=== PATIENT | male | born 1990 | race Caucasian/White ===

== ENCOUNTER 2016-12-02 10:46 | Emergency (ER) | payer MEDICARE, MEDICAID ==
[~2016-12-02] VITALS: Ht 177.8 cm; Wt 73.0 kg
[~2016-12-02 10:46] MED LIST: NAPR220T95 PO; OLAN10TA PO; TRAZ50TA12 PO
[2016-12-02 11:12] VITALS: BP 132/68; PULSE 120; RESP 18; TEMP 98.6; O2SAT 96
[2016-12-02] MEDS ORDERED: MOBI7.5T PO (11:27)
[2016-12-02] MEDS ORDERED: BENA25TA3 PO (11:28)
[2016-12-02] MEDS ORDERED: SODIUM CHLOR 0.9% 1000 ML INJ 1,000 ML IV ONE (11:45)
[2016-12-02] MEDS ORDERED: PANTOPRAZOLE SODIUM 40 MG VIAL IV PUSH ONE (11:45)
[2016-12-02 12:13] LABS: AUTOMATED NEUTROPHIL # 6.9 TH/MM3 (1.8-7.7); BASOPHIL % 0.3 % (0.0-2.0); EOSINOPHIL # 0.1 TH/MM3 (0-0.4); EOSINOPHIL % 0.8 % (0.0-4.0); HEMATOCRIT 53.2 % (39.0-51.0); HEMO FLAGS DIFF FINAL; LYMPH % 11.1 % (9.0-44.0); LYMPHOCYTE # 0.9 TH/MM3 (1.0-4.8); MEAN CELL VOLUME 86.9 FL (80.0-100.0); MEAN CORPUSCULAR HEMOGLOBIN 30.6 PG (27.0-34.0); MEAN CORPUSCULAR HGB CONC 35.2 % (32.0-36.0); MONO % 3.5 % (0.0-8.0); NEUT % 84.3 % (16.0-70.0); PLATELET COUNT 204 TH/MM3 (150-450); RED BLOOD COUNT 6.12 MIL/MM3 (4.50-5.90); RED CELL DISTRIBUTION WIDTH 13.7 % (11.6-17.2); WHITE BLOOD COUNT 8.2 TH/MM3 (4.0-11.0)
--- NOTE | 2016-12-02 12:25 | PD ---
HPI Chief Complaint: Psychiatric Symptoms Time Seen by Provider: 11:17 Travel History International Travel<30 days: No Contact w/Intl Traveler<30days: No Traveled to known affect area: No History of Present Illness HPI 26-year-old male complains of depression and poor appetite. Patient states that he has not been eating much recently. Patient has some suicidal ideation. Patient has history of psychosis and anxiety. Patient has not been taking his medications. Patient states that he has some mild aching headache. Patient denies any visual change. Patient denies any neck pain. Patient denies any chest pain or shortness of breath. Patient states that he has some the mid abdominal cramping. Patient denies any nausea vomiting diarrhea. Patient denies any dysuria or frequency. Patient denies any fever chills. Patient denies any history of illicit drug or alcohol abuse. PFSH Past Medical History Bipolar Disorder: Yes Anxiety: Yes Cancer: No Cardiovascular Problems: No Diabetes: No Endocrine: No Genitourinary: No Headaches: No Hepatitis: No Hiatal Hernia: No Hypertension: No Immune Disorder: No Musculoskeletal: Yes (cerebrel palsy) Psychiatric: No Reproductive: No Respiratory: No Seizures: No Thyroid Disease: No Past Surgical History Cardiac Surgery: Yes Eye Surgery: Yes Pacemaker: No Other Surgery: Yes Social History Alcohol Use: No Tobacco Use: No Substance Use: No Allergies-Medications (Allergen,Severity, Reaction): Coded Allergies: Sulfa (Verified Allergy, Severe, Rash, 08/11/16) Reported Meds & Prescriptions Reported Meds & Active Scripts Active Reported Benadryl Allergy (Diphenhydramine HCl) 25 Mg Tab 25 Mg PO Q6H PRN Mobic (Meloxicam) 7.5 Mg Tab 7.5 Mg PO DAILY Aleve (Naproxen Sodium) 220 Mg Tab 1 Tab PO DAILY PRN Trazodone (Trazodone HCl) 50 Mg Tab 1 Tab PO HS Olanzapine 10 Mg Tab 1 Tab PO HS Review of Systems General / Constitutional: No: Fever Eyes: No: Visual changes HENT: No: Headaches Cardiovascular: No: Chest Pain or Discomfort Respiratory: No: Shortness of Breath Gastrointestinal: Positive: Abdominal Pain Genitourinary: No: Dysuria Musculoskeletal: No: Pain Skin: No Rash Neurologic: No: Weakness Psychiatric: No: Depression Endocrine: No: Polydipsia Hematologic/Lymphatic: No: Easy Bruising Physical Exam Narrative GENERAL: Well-nourished, well-developed patient. SKIN: Warm and dry. HEAD: Normocephalic. EYES: No scleral icterus. No injection or drainage. NECK: Supple, trachea midline. No JVD or lymphadenopathy. CARDIOVASCULAR: Mild tachycardia rate and rhythm without murmurs, gallops, or rubs. RESPIRATORY: Breath sounds equal bilaterally. No accessory muscle use. GASTROINTESTINAL: Abdomen soft, non-tender, nondistended. MUSCULOSKELETAL: No cyanosis, or edema. BACK: Nontender without obvious deformity. No CVA tenderness. Neurologic exam normal. Data Data Last Documented VS Vital Signs Date Time Temp Pulse Resp B/P Pulse Ox O2 Delivery O2 Flow Rate FiO2 12/02/16 11:22 124 20 12/02/16 11:21 12/02/16 11:12 98.6 96 Orders Complete Blood Count With Diff (12/02/16 11:41) Comprehensive Metabolic Panel (12/02/16 11:41) Urinalysis - C+S If Indicated (12/02/16 11:41) Psych Screen (12/02/16 11:41) Drug Screen, Random Urine (12/02/16 11:41) Sodium Chlor 0.9% 1000 Ml Inj (Ns 1000 M (12/02/16 11:45) Pantoprazole Inj (Protonix Inj) (12/02/16 11:45) Electrocardiogram (12/02/16 ) Labs Laboratory Tests Test 12/02/16 11:47 White Blood Count 8.2 TH/MM3 Red Blood Count 6.12 MIL/MM3 Hemoglobin 18.7 GM/DL Hematocrit 53.2 % Mean Corpuscular Volume 86.9 FL Mean Corpuscular Hemoglobin 30.6 PG Mean Corpuscular Hemoglobin 35.2 % Concent Red Cell Distribution Width 13.7 % Platelet Count 204 TH/MM3 Mean Platelet Volume 10.0 FL Neutrophils (%) (Auto) 84.3 % Lymphocytes (%) (Auto) 11.1 % Monocytes (%) (Auto) 3.5 % Eosinophils (%) (Auto) 0.8 % Basophils (%) (Auto) 0.3 % Neutrophils # (Auto) 6.9 TH/MM3 Lymphocytes # (Auto) 0.9 TH/MM3 Monocytes # (Auto) 0.3 TH/MM3 Eosinophils # (Auto) 0.1 TH/MM3 Basophils # (Auto) 0.0 TH/MM3 CBC Comment DIFF FINAL Differential Comment MDM Medical Decision Making Medical Screen Exam Complete: Yes Emergency Medical Condition: Yes Medical Record Reviewed: Yes Differential Diagnosis Differential diagnosis including anxiety, depression, psychosis, suicidal, electrolyte imbalance, dehydration. Narrative Course 26-year-old male with depression, suicidal, poor oral intake. Normal saline solution 1 L IV bolus. Protonix 40 mg IV. Kevin Wesley MD Dec 02, 2016 12:25
[2016-12-02 12:43] LABS: ALKALINE PHOSPHATASE 89 U/L (45-117); ALT (GPT) 36 U/L (12-78); ANION GAP 15 MEQ/L (5-15); AST (GOT) 22 U/L (15-37); BLOOD UREA NITROGEN 13 MG/DL (7-18); CHLORIDE 99 MEQ/L (98-107); GLOMERULAR FILTRATION RATE 59 ML/MIN (>89); POTASSIUM 3.1 MEQ/L (3.5-5.1); SODIUM (NA) 137 MEQ/L (136-145); TOTAL BILIRUBIN ADULT 2.4 MG/DL (0.2-1.0)
[2016-12-02] MEDS ORDERED: LORazepam 2 MG/ML VIAL IV PUSH ONE (13:30)
[2016-12-02 13:55] LABS: BLOOD, URINE NEG (NEG); GLUCOSE,URINE 300 mg/dL (NEG); KETONE, URINE 40 mg/dL (NEG); NITRITE,URINE NEG (NEG); PH, URINE 5.5 (5.0-8.5); URINE COLOR LIGHT-YELLOW (YELLW/STRAW)
[2016-12-02 14:03] LABS: COMMENT (UR) CULT NOT INDICATED; CULTURE IF INDICATED CULT NOT INDICATED
--- NOTE | 2016-12-02 15:01 | PD ---
History of Present Illness Chief Complaint: Psychiatric Symptoms Time Seen by Provider: 14:00 Travel History International Travel<30 Days: No Contact w/Intl Traveler<30days: No Known affected area: No Legal Status Legal Status: Pick[place] Act Pick[place] Act Signed By: Paulina Norris History of Present Illness: This is a 26-year-old male with a history of psychiatric illness, cerebral palsy and significant visual impairment. Patient was reportedly not sleeping or eating well for the last 3 days. He appeared very anxious at the time of interview and was a poor historian. Therefore this physician called and spoke with the patient's mother. Patient's mother indicates he has been withdrawing himself from oxazepam over the last several weeks, against his doctor's advice, and this has most likely precipitated his recent symptoms. The patient has become very tired due to sleeplessness, very anxious due to withdrawal, and has lost his appetite. He is not currently suicidal or homicidal. He is not psychotic. His visual impairment is significant and his cerebral palsy is obvious. According to his mother, he spent a week at [facility] approximately 2-3 years ago. However at this time the patient would like to go home and he denies suicidal and homicidal thinking. The patient's mother is willing to pick him up and take him to her home for several days. She was concerned about a lack of prescription for oxazepam and this physician wrote 1 to assist the patient's anxiety disorder needs. Patient does have an outpatient psychiatrist for follow up. [facility] Past Medical History Narrative Medical History of cerebral palsy and significant visual impairment. Bipolar Disorder: Yes Anxiety: Yes Cancer: No Cardiovascular Problems: No Diabetes: No Endocrine: No Genitourinary: No Headaches: No Hepatitis: No Hiatal Hernia: No Hypertension: No Immune Disorder: No Musculoskeletal: Yes (cerebrel palsy) Psychiatric: No Reproductive: No Respiratory: No Seizures: No Thyroid Disease: No Past Surgical History Cardiac Surgery: Yes Eye Surgery: Yes Pacemaker: No Other Surgery: Yes Psychiatric History Psychiatric History Hx Psychiatric Treatment: The patient's mother stated that the patient has A history of psychiatric treatment & diagnosis. The patient's mother indicated that the patient has been stable, capable, and happy until the most recent few days. History of Inpatient Treatment: No Guns or firearms in home: No Social History Hx Alcohol Use: No Hx Tobacco Use: No Hx Substance Use: No Substance Use Type: Alcohol Other Substances Used: OCCASIONAL WINE COOLER Hx of Substance Use Treatment: No Allergies-Medications (Allergen,Severity, Reaction): Coded Allergies: Sulfa (Verified Allergy, Severe, Rash, 08/11/16) Reported Meds & Prescriptions Reported Meds & Active Scripts Active Reported Benadryl Allergy (Diphenhydramine HCl) 25 Mg Tab 25 Mg PO Q6H PRN Mobic (Meloxicam) 7.5 Mg Tab 7.5 Mg PO DAILY Aleve (Naproxen Sodium) 220 Mg Tab 1 Tab PO DAILY PRN Trazodone (Trazodone HCl) 50 Mg Tab 1 Tab PO HS Olanzapine 10 Mg Tab 1 Tab PO HS Review of Systems ROS Limitations: Clinical Condition Except as stated in HPI: all other systems reviewed are Neg Exam Alert: Yes [place]: Person, Place, Date, Situation Mood: Anxious Affect: Euthymic Speech: Clear Eye Contact: None Memory Intact: Immediate, Recent, Remote Hallucinations: Other Delusions: No Delusion Type: Other Insight/Judgement Fair judgment and insight do to oxazepam withdrawal. MDM Medical Decision Making Medical Record Reviewed: Yes Assessment/Plan Patient to be discharged home to his mother per his request and her acknowledgment. Orders Complete Blood Count With Diff (12/02/16 11:41) Comprehensive Metabolic Panel (12/02/16 11:41) Urinalysis - C+S If Indicated (12/02/16 11:41) Psych Screen (12/02/16 11:41) Drug Screen, Random Urine (12/02/16 11:41) Sodium Chlor 0.9% 1000 Ml Inj (Ns 1000 M (12/02/16 11:45) Pantoprazole Inj (Protonix Inj) (12/02/16 11:45) Electrocardiogram (12/02/16 ) Lorazepam Inj (Ativan Inj) (12/02/16 13:30) Results Vital Signs Date Time Temp Pulse Resp B/P Pulse Ox O2 Delivery O2 Flow Rate FiO2 12/02/16 11:22 124 20 12/02/16 11:21 12/02/16 11:12 98.6 120 18 132/68 96 Laboratory Tests Test 12/02/16 12/02/16 11:47 13:34 White Blood Count 8.2 Red Blood Count 6.12 Hemoglobin 18.7 Hematocrit 53.2 Mean Corpuscular Volume 86.9 Mean Corpuscular Hemoglobin 30.6 Mean Corpuscular Hemoglobin 35.2 Concent Red Cell Distribution Width 13.7 Platelet Count 204 Mean Platelet Volume 10.0 Neutrophils (%) (Auto) 84.3 Lymphocytes (%) (Auto) 11.1 Monocytes (%) (Auto) 3.5 Eosinophils (%) (Auto) 0.8 Basophils (%) (Auto) 0.3 Neutrophils # (Auto) 6.9 Lymphocytes # (Auto) 0.9 Monocytes # (Auto) 0.3 Eosinophils # (Auto) 0.1 Basophils # (Auto) 0.0 CBC Comment DIFF FINAL Differential Comment Sodium Level 137 Potassium Level 3.1 Chloride Level 99 Carbon Dioxide Level 23.0 Anion Gap 15 Blood Urea Nitrogen 13 Creatinine 1.45 Estimat Glomerular Filtration 59 Rate Random Glucose 196 Calcium Level 9.1 Total Bilirubin 2.4 Aspartate Amino Transf 22 (AST/SGOT) Alanine Aminotransferase 36 (ALT/SGPT) Alkaline Phosphatase 89 Total Protein 8.4 Albumin 4.8 Urine Color LIGHT-YELLOW Urine Turbidity CLEAR Urine pH 5.5 Urine Specific [place] 1.008 Urine Protein NEG Urine Glucose (UA) 300 Urine Ketones 40 Urine Occult Blood NEG Urine Nitrite NEG Urine Bilirubin NEG Urine Urobilinogen LESS THAN 2.0 Urine Leukocyte Esterase NEG Urine RBC LESS THAN 1 Urine WBC LESS THAN 1 Microscopic Urinalysis Comment CULT NOT INDICATED Diagnosis Primary Impression: Anxiety disorder Nba Mercado MD Dec 02, 2016 15:01
[2016-12-02 15:19] LABS: AMPHETAMINE, URINE NEG (NEG); BARBITURATES, URINE NEG (NEG); COCAINE, URINE NEG (NEG)
--- NOTE | 2016-12-03 22:40 | EKG ---
Date Performed: 12/02/2016 Time Performed: 11:20:11 PTAGE: 26 years EKG: SINUS TACHYCARDIA BORDERLINE RIGHT AXIS DEVIATION ABNORMAL RHYTHM ECG NO PREVIOUS TRACING DOCTOR: Smith Tomas Interpretating Date/Time 12/03/2016 22:39:16
== END 2016-12-02 15:50 | disposition home or self-care (01) ==
LOC: NEPA 10:46
DX: F41.9 Anxiety disorder, unspecified (principal); G80.9 Cerebral palsy, unspecified; R51 Headache; R10.9 Unspecified abdominal pain; R00.0 Tachycardia, unspecified
CPT/HCPCS: 80053; 80307; 81001; 85025; 93005; 96374; 96375; 99285; C9113; J2060; J7030

== ENCOUNTER 2016-12-04 11:22 | Inpatient (IN) | payer MEDICARE, MEDICAID ==
[~2016-12-04] VITALS: Ht 170.2 cm; Wt 65.3 kg
[~2016-12-04 11:22] MED LIST changes: +BENA25TA3 PO; +MOBI7.5T PO
[2016-12-04 11:24] VITALS: BP 168/88; PULSE 135; RESP 18; TEMP 97.8; O2SAT 99
[2016-12-04 11:26] VITALS: BP 137/103; PULSE 124; RESP 20; O2SAT 97
--- NOTE | 2016-12-04 11:42 | PD ---
HPI Chief Complaint: Suicide Ideation/Attempt Time Seen by Provider: 11:42 Travel History International Travel<30 days: No Contact w/Intl Traveler<30days: No Traveled to known affect area: No History of Present Illness HPI 26-year-old man who is legally blind with history of bipolar presents to emergency department for psychiatric evaluation. Patient is alert by Drs. German and aSl. Has been increasingly depressed after manipulation of his medications. This is accompanied by severe anxiety. Patient has been experiencing suicidal thoughts, mostly in his dreams. This scares him. Denies any recent illness, fever, chills. Mom accompanies patient states that Dr. Huang contacted the hospital however I have been unable to find out whom he spoke with. Patient has no acute medical needs at this time. Lab work was drawn at patient's most recent visit 2 days ago. It will not be repeated at this time. PFSH Past Medical History Bipolar Disorder: Yes Anxiety: Yes Cancer: No Cardiovascular Problems: No Diabetes: No Endocrine: No Genitourinary: No Headaches: No Hepatitis: No Hiatal Hernia: No Hypertension: No Immune Disorder: No Musculoskeletal: Yes (cerebrel palsy) Psychiatric: No Reproductive: No Respiratory: No Seizures: No Thyroid Disease: No Past Surgical History Cardiac Surgery: Yes Eye Surgery: Yes Pacemaker: No Other Surgery: Yes Social History Alcohol Use: No Tobacco Use: No Substance Use: No Allergies-Medications (Allergen,Severity, Reaction): Coded Allergies: Sulfa (Verified Allergy, Severe, Rash, 08/11/16) Reported Meds & Prescriptions Reported Meds & Active Scripts Active Reported Benadryl Allergy (Diphenhydramine HCl) 25 Mg Tab 25 Mg PO Q6H PRN Mobic (Meloxicam) 7.5 Mg Tab 7.5 Mg PO DAILY Aleve (Naproxen Sodium) 220 Mg Tab 1 Tab PO DAILY PRN Trazodone (Trazodone HCl) 50 Mg Tab 1 Tab PO HS Olanzapine 10 Mg Tab 1 Tab PO HS Review of Systems Except as stated in HPI: all other systems reviewed are Neg Physical Exam Narrative GENERAL: Thin male patient, ambulatory, anxious, but in no acute distress SKIN: Warm and dry. HEAD: Atraumatic. Normocephalic. EYES: Pupils equal and round. No scleral icterus. No injection or drainage. ENT: No nasal bleeding or discharge. Mucous membranes pink and moist. NECK: Trachea midline. No JVD. CARDIOVASCULAR: Tachycardic rate and rhythm. No murmur appreciated. RESPIRATORY: No accessory muscle use. Clear to auscultation. Breath sounds equal bilaterally. GASTROINTESTINAL: Abdomen soft, non-tender, nondistended. Hepatic and splenic margins not palpable. MUSCULOSKELETAL: No obvious deformities. No clubbing. No cyanosis. No edema. NEUROLOGICAL: Awake and alert. No obvious cranial nerve deficits. Motor grossly within normal limits. Normal speech. Data Data Last Documented VS Vital Signs Date Time Temp Pulse Resp B/P Pulse Ox O2 Delivery O2 Flow Rate FiO2 12/04/16 11:26 124 20 137/103 97 12/04/16 11:24 97.8 [facility] Medical Decision Making Medical Screen Exam Complete: Yes Emergency Medical Condition: Yes Medical Record Reviewed: Yes Differential Diagnosis Mood disorder versus personality disorder versus acute psychosis versus adjustment reaction disorder Narrative Course 26-year-old male presents to emergency department for psychiatric evaluation. Patient is depressed and having suicidal thoughts with no active plan currently. Patient was advised to come here by Dr. Huang. Lab work will not be repeated as it was completed 2 days ago. He is medically cleared to undergo psychiatric screening for further evaluation and disposition. Mental health screening discussed with the patient. Psychiatric screen ordered. Diagnosis Primary Impression: Bipolar disorder Qualified Code: F31.4 - Bipolar disorder, current episode depressed, severe, without psychotic features Additional Impressions: Depression Qualified Code: F32.9 - Depression, unspecified depression type Suicidal thoughts Condition: Darby SotoMariana IGNACIA Dec 04, 2016 11:42
[2016-12-04 12:28] VITALS: BP 132/74; PULSE 76; RESP 16; TEMP 98.5; O2SAT 95
[2016-12-04 14:05] VITALS: BP 138/76; PULSE 80; RESP 18; O2SAT 98
[2016-12-04] MEDS ORDERED: LORazepam 1 MG TAB PO ONE (15:45)
[2016-12-04] MEDS ORDERED: diphenhydrAMINE HCL 50 MG CAP PO ONE (21:45)
[2016-12-04 22:12] VITALS: BP 168/90; PULSE 109; RESP 18; O2SAT 97
[2016-12-05 02:11] VITALS: RESP 18
[2016-12-05 06:16] VITALS: BP 141/66; PULSE 99; RESP 18; O2SAT 97
--- NOTE | 2016-12-05 09:23 | PD ---
History of Present Illness Chief Complaint: Suicide Ideation/Attempt Time Seen by Provider: 08:45 Travel History International Travel<30 Days: No Contact w/Intl Traveler<30days: No Known affected area: No Legal Status Legal Status: Voluntary History of Present Illness: History of Present Illness 26-year-old man with history of bipolar Disorder 1 who is legally blind presents to emergency department for psychiatric evaluation as per the recommendation his outpatient psychiatrist, Dr. Adamson . As per documentation from Ed included in this report ; Has been increasingly depressed after manipulation of his medications. This is accompanied by severe anxiety. Patient has been experiencing suicidal thoughts, mostly in his dreams. This scares him. Denies any recent illness, fever, chills. Mom accompanies patient states that Dr. Huang contacted the hospital however I have been unable to find out whom he spoke with. Patient was seen and evaluated in ED on Nov, but at the time did not meet criteria for inpatient psychiatric hospitalization and mother preferred that he be treated as an outpatient . Patient is in J pod. Patient is rocking back and forth and appears anxious. He is visually impaired. He is engaging and able to answer questions. he does not appear internally stimulated. He denies any hallucinatory process. Does report fast and intrusive thoughts. Having difficulty making decisions and excessive worry. He does state that he is having suicidal thoughts that he has never had before and cause him distress. Mood is anxious and depressed. Patient reports that he has not slept well in the past 4 to 4 days and that he is not eating well. Telephone call to mother. She reports that after he stopped the Zyprexa on Nov 18. The patient felt that he did not have a correct psychiatric diagnosis of bipolar disorder and against medical advise stopped taking the Zyprexa. After several weeks he began to experience symptoms including not sleeping, running around from room to room, complaining of not being able to control his thoughts , changes in his mood. She prefers that at this time he was hospitalized in order to stabilize medications and mood. As per EMR patient was last hospitalized [facility] in December of 2014 under the care of Dr. Whalen after he was placed under a BA for what appears to be manic symptoms. PFSH Past Medical History Bipolar Disorder: Yes Anxiety: Yes Cancer: No Cardiovascular Problems: No Diabetes: No Endocrine: No Genitourinary: No Headaches: No Hepatitis: No Hiatal Hernia: No Hypertension: No Immune Disorder: No Musculoskeletal: Yes (cerebrel palsy) Psychiatric: No Reproductive: No Respiratory: No Seizures: No Thyroid Disease: No Past Surgical History Cardiac Surgery: Yes Eye Surgery: Yes Pacemaker: No Other Surgery: Yes Psychiatric History Psychiatric History Hx Psychiatric Treatment: The patient's mother stated that the patient has A history of bipolar I disorder. History of Inpatient Treatment: Yes ([facility] [place]) Guns or firearms in home: No Social History Single male. Lives by himself. Mother lives next door. Disabled Hx Alcohol Use: No Hx Tobacco Use: No Hx Substance Use: No Substance Use Type: Alcohol Other Substances Used: OCCASIONAL WINE COOLER Hx of Substance Use Treatment: No Family Psychiatric History Strong family hx of BPD as per record Allergies-Medications (Allergen,Severity, Reaction): Coded Allergies: Sulfa (Verified Allergy, Severe, Rash, 08/11/16) Reported Meds & Prescriptions Reported Meds & Active Scripts Active Reported Benadryl Allergy (Diphenhydramine HCl) 25 Mg Tab 25 Mg PO Q6H PRN Mobic (Meloxicam) 7.5 Mg Tab 7.5 Mg PO DAILY Aleve (Naproxen Sodium) 220 Mg Tab 1 Tab PO DAILY PRN Trazodone (Trazodone HCl) 50 Mg Tab 1 Tab PO HS Olanzapine 10 Mg Tab 1 Tab PO HS Review of Systems Constitutional: DENIES: Diaphoretic episodes, Fatigue, Fever, Weight gain, Weight loss, Chills, Dizziness, Change in appetite, Night Sweats Endocrine: COMPLAINS OF: Heat/cold intolerance (cold intolerance), DENIES: Polydipsia, Polyuria, Polyphagia Eyes: COMPLAINS OF: Vision loss Ears, nose, mouth, throat: DENIES: Tinnitus, Hearing loss, Vertigo, Nasal discharge, Oral lesions, Throat pain, Hoarseness, Ear Pain, Running Nose, Epistaxis, Sinus Pain, Toothache, Odynophagia Respiratory: DENIES: Apneas, Cough, Snoring, Wheezing, Hemoptysis, Sputum production, Shortness of breath Cardiovascular: DENIES: Chest pain, Palpitations, Syncope, Dyspnea on Exertion , PND, Lower Extremity Edema, Orthopnea, Claudication Gastrointestinal: DENIES: Abdominal pain, Black stools, Bloody stools, Constipation, Diarrhea, Nausea, Vomiting, Difficulty Swallowing, Anorexia Genitourinary: DENIES: Sexual dysfunction, Urinary frequency, Urinary incontinence, Urgency, Hematuria, Dysuria, Nocturia, Penile Discharge, Testicular Pain, Testicular Swelling Musculoskeletal: DENIES: Joint pain, Muscle aches, Stiffness, Joint Swelling, Back pain, Neck pain Integumentary: DENIES: Abnormal pigmentation, Nail changes, Pruritus, Rash Hematologic/lymphatic: DENIES: Bruising, Lymphadenopathy Immunologic/allergic: DENIES: Eczema, Urticaria Neurologic: COMPLAINS OF: Abnormal gait, Poor Balance (HC of CP) Psychiatric: COMPLAINS OF: Anxiety, Mood changes, Suicidal Ideation Exam Alert: Yes [place]: Person (person), Place, Date (partial to date) Mood: Anxious, Depressed Affect: Restricted Speech: Clear Eye Contact: None (visually impaired) Memory Intact: Comment (not formally tetsed) Hallucinations: Other (deneis) Suicidal: Ideation (of jumping in traffic or jumping in the ocean while on a cruise) Homicidal: Ideation (negative) Insight/Judgement Fair. Poor MDM Medical Decision Making Medical Record Reviewed: Yes Assessment/Plan 26 year old male with hx of bipolar disorder who at the beginning of this month stopped talking Zyprexa with current symptoms of [id number] including not sleeping, anxiety, mood changes, rapid intrusive thoughts, suicidal ideation, poor coping, excessive worry. At this time patient requires increase in level of care such as inpatient psychiatric treatment to stabilize current symptoms and maintain his safety. Orders Lorazepam (Ativan) (12/04/16 15:45) Diet Regular Basic (12/04/16 Dinner) Diphenhydramine (Benadryl) (12/04/16 21:45) Diet Regular Basic (12/05/16 Breakfast) Psych Screen (12/05/16 08:58) Results Vital Signs Date Time Temp Pulse Resp B/P Pulse Ox O2 Delivery O2 Flow Rate FiO2 12/05/16 06:16 99 18 141/66 97 Room Air 12/05/16 02:11 18 Room Air 12/04/16 22:12 109 18 168/90 97 Room Air 12/04/16 14:05 80 18 138/76 98 Room Air 12/04/16 12:28 98.5 76 16 132/74 95 Room Air 12/04/16 11:26 124 20 137/103 97 12/04/16 11:24 97.8 135 18 168/88 99 Diagnosis Primary Impression: Bipolar disorder Additional Impressions: Suicidal thoughts Depression Admitting Information Admitting Physician Requests: Admit (Dr. Perez) Condition: Stable Problem Qualifiers Primary Impression: Bipolar disorder Qualified Code: F31.0 - Bipolar affective disorder, current episode hypomanic Additional Impressions: Depression Qualified Code: F32.9 - Depression, unspecified depression type Katherin Desai Dec 05, 2016 09:23
[2016-12-05] MEDS ORDERED: MAGNESIUM HYDROXIDE SUSP 30 ML CUP PO PRN (09:45)
[2016-12-05] MEDS ORDERED: ALUMINUM/MAGNESIUM/SIMETH 30 ML CUP PO PRN (09:45)
[2016-12-05 12:20] VITALS: BP 139/82; PULSE 122; RESP 20; O2SAT 95
[2016-12-05] MEDS ORDERED: OLANZapine 5 MG TAB PO ONE (12:30)
[2016-12-05] MEDS ORDERED: LORazepam 1 MG TAB PO ONE (13:00)
[2016-12-05 13:30] VITALS: BP 133/80; PULSE 82; TEMP 99.1; O2SAT 99
[2016-12-05] MEDS: OLANZapine 10 MG TAB PO SCH (21:00)
[2016-12-05] MEDS: ACETAMINOPHEN 325 MG TAB PO PRN (22:35)
[2016-12-05] MEDS ORDERED: diphenhydrAMINE HCL 50 MG CAP PO PRN (23:00)
[2016-12-06 05:23] VITALS: BP 151/88; PULSE 120; RESP 20; TEMP 98.7; O2SAT 97
[2016-12-06 07:52] LABS: ANION GAP 9 MEQ/L (5-15); BICARBONATE 25.7 MEQ/L (21.0-32.0); BLOOD UREA NITROGEN 10 MG/DL (7-18); CHLORIDE 102 MEQ/L (98-107); GLOMERULAR FILTRATION RATE 98 ML/MIN (>89); HDL CHOLESTEROL 55.2 MG/DL (40.0-60.0); LDL CHOLESTEROL 61 MG/DL (0-99); POTASSIUM 3.6 MEQ/L (3.5-5.1); SODIUM (NA) 137 MEQ/L (136-145)
[2016-12-06] MEDS: MELOXICAM 7.5 MG TAB PO SCH (08:35)
[2016-12-06] MEDS ORDERED: LORazepam 2 MG TAB PO ONE (12:30)
--- NOTE | 2016-12-06 14:21 | HHI.HP ---
Provisional Diagnosis Admission Date Dec 05, 2016 at 09:38 Covert I. Major depressive disorder vs bipolar disorder, depressed mood, adjustment disorder with depression, Covert II. Deferred Covert III. Legally blind Certification of Person's Competence To Provide Express and Informed Consent I have personally examined Bryan Zhu , a person being served at [facility] on, Dec 06, 2016 14:04. Express and informed consent means consent voluntarily given in writing, by a competent person, after sufficient explanation and disclosure of the subject matter involved to enable the person to make a knowing and willful decision without any element of force, fraud, deceit, duress, or other form of constraint or coercion. This person is 18 years of age or older, is not now known to be incompetent to consent to treatment with a guardian advocate, and does not have a health care surrogate or proxy currently making medical treatment decisions. I have found this person to be one of the following: [] Competent to provide express and informed consent, as defined above, for voluntary admission to this facility and is competent to provide express and informed consent for treatment. He/she has the consistent capacity to make well reasoned, willful, and knowing decisions concerning his or her medical or mental health treatment. The person fully and consistently understands the purpose of the admission for examination/placement and is fully capable of personally exercising all rights assured under [place] [] Incompetent to provide express and informed consent to voluntary admission, and this is incompetent to provide express and informed consent to treatment. The person must be transferred to involuntary status and a petition for a guardian advocate filed with the Circuit Court. [X] Refusing to provide express and informed consent to voluntary admission but is competent to provide express and informed consent for treatment. The person must be discharged or transferred to involuntary status. Form shall be completed within 24 hours of a person's arrival at the receiving facility and filed in the clinical record of each person: 1. Admitted on a voluntary basis 2. Permitted to provide express and informed consent to his/her own treatment 3. Allowed to transfer from involuntary to voluntary status 4. Prior to permitting a person to consent to his or her own treatment after having been previously found incompetent to consent to treatment. History of Present Illness Capacity: Has Capacity HPI ER note, by Ms. Desai, 12/06/2016 :"26-year-old man with history of bipolar Disorder 1 who is legally blind presents to emergency department for psychiatric evaluation as per the recommendation his outpatient psychiatrist, Dr. Adamson . As per documentation from Ed included in this report ; Has been increasingly depressed after manipulation of his medications. This is accompanied by severe anxiety. Patient has been experiencing suicidal thoughts , mostly in his dreams. This scares him. Denies any recent illness, fever, chills. Mom accompanies patient states that Dr. Huang contacted the hospital however I have been unable to find out whom he spoke with. Patient was seen and evaluated in ED on Nov, but at the time did not meet criteria for inpatient psychiatric hospitalization and mother preferred that he be treated as an outpatient Patient is in J pod. Patient is rocking back and forth and appears anxious. He is visually impaired. He is engaging and able to answer questions. he does not appear internally stimulated. He denies any hallucinatory process. Does report fast and intrusive thoughts. Having difficulty making decisions and excessive worry. He does state that he is having suicidal thoughts that he has never had before and cause him distress. Mood is anxious and depressed. Patient reports that he has not slept well in the past 4 to 4 days and that he is not eating well. Telephone call to mother. She reports that after he stopped the Zyprexa on Nov 18. The patient felt that he did not have a correct psychiatric diagnosis of bipolar disorder and against medical advise stopped taking the Zyprexa. After several weeks he began to experience symptoms including not sleeping, running around from room to room, complaining of not being able to control his thoughts, changes in his mood. She prefers that at this time he was hospitalized in order to stabilize medications and mood. As per EMR patient was last hospitalized [facility] in December of 2014 under the care of Dr. Whalen after he was placed under a BA for what appears to be manic symptoms" 12/06/2016: The patient is a 26-year-old man, domicile with his mother , with psychiatric history of bipolar disorder, anxiety, cerebral palsy, some level of intellectual disability, hospitalized here at [place] in 2014, no previous suicidal attempts, psychiatric follow-up with Dr. German, medical history of legal blindness, who was admitted in the psychiatric weiss as per outpatient psychiatrist request due to suicidal ideation and depression in the context of recent changes in his psychotropics. On psychiatric evaluation today patient complains of acute anxiety, poor sleep, is very ambivalent, at the beginning he says that he wants to , minutes later he is a that he doesn' t want to "I cannot stop the intrusive thought about this". Patient says that he doesn't want to , he wants to get better, is motivated to take his medication, but he is afraid of losing his mind. At this moment the patient denies suicidal or homicidal ideation, denies visual and auditory hallucinations. As per nurses he has been pacing around, at time he has been been difficult to redirect and he has been complaining of anxiety. Patient reports auditory hallucinations of ringing sounds, but denies voices commanding type. At some point over the evaluation patient became very labile, started to cry and complain of anxiety, stating that "I cannot take this anymore". Patient is oriented 3, he was offered Ativan 2 mg and he accepted. Review of Systems Constitutional: DENIES: Diaphoretic episodes, Fatigue, Fever, Weight gain, Weight loss, Chills, Dizziness, Change in appetite, Night Sweats Endocrine: DENIES: Heat/cold intolerance, Polydipsia, Polyuria, Polyphagia Eyes: COMPLAINS OF: Vision loss, DENIES: Blurred vision, Diplopia, Eye inflammation, Eye pain, Photosensitivity, Double Vision Ears, nose, mouth, throat: DENIES: Tinnitus, Hearing loss, Vertigo, Nasal discharge, Oral lesions, Throat pain, Hoarseness, Ear Pain, Running Nose, Epistaxis, Sinus Pain, Toothache, Odynophagia Respiratory: DENIES: Apneas, Cough, Snoring, Wheezing, Hemoptysis, Sputum production, Shortness of breath Gastrointestinal: DENIES: Abdominal pain, Black stools, Bloody stools, Constipation, Diarrhea, Nausea, Vomiting, Difficulty Swallowing, Anorexia Hematologic/lymphatic: DENIES: Bruising, Lymphadenopathy Immunologic/allergic: DENIES: Eczema, Urticaria Psychiatric: COMPLAINS OF: Anxiety, Depression, Hallucinations, DENIES: Confusion, Mood changes, Agitation, Suicidal Ideation, Homicidal Ideation, Delusions Past Psych History Violence risk - self (6 mos) Increased Substance Abuse History Drugs/Alcohol past 12 months Patient denies the use of drugs and alcohol Past Family Social History Coded Allergies: Sulfa (Verified Allergy, Severe, Rash, 08/11/16) Reported Medications Diphenhydramine (Benadryl Allergy)25 Mg Tab25 Mg PO Q6H PRN (ALLERGIES) Ref 0 12/02/16 Meloxicam (Mobic)7.5 Mg Tab7.5 Mg PO DAILY Ref 0 12/02/16 Naproxen Sodium (Aleve)220 Mg Tab1 Tab PO DAILY PRN (Pain Management) Ref 0 08/11/16 Trazodone 50 Mg Tab1 Tab PO HS #30 TAB Ref 0 08/11/16 Olanzapine 10 Mg Tab1 Tab PO HS #60 TAB Ref 0 08/11/16 Current Medications Medications (Trade) Dose Ordered Sig/Olaf Route Start Time Stop Time Status Last Admin (Tylenol) 650 mg Q4H PRN PO 12/05/16 09:45 12/05/16 22:35 (Milk Of Magnesia Liq) 30 ml DAILY PRN PO 12/05/16 09:45 (Mag-Al Plus Susp Liq) 30 ml Q6H PRN PO 12/05/16 09:45 (Mobic) 7.5 mg DAILY PO 12/06/16 09:00 12/06/16 08:35 (ZyPREXA) 10 mg HS PO 12/05/16 21:00 12/05/16 21:00 Family History He denies Social History Patient was born and raised in [place], he lives with his mother in [place], he has SSI, he is single, he finished high school Physical Exam Vital Signs Vital Signs Date Time Temp Pulse Resp B/P Pulse Ox O2 Delivery O2 Flow Rate FiO2 12/06/16 05:23 98.7 120 20 151/88 97 12/05/16 06:16 Room Air I/O 12/05/16 12/05/16 12/06/16 08:00 16:00 00:00 Intake Total 600 ml Balance 600 ml Mental Status Examination Appearance man, legally blind, he seems to be very anxious, [facility], good hygiene, just superficially cooperative Speech: Hesitant Orientation: x3 Memory: Unremarkable Thought Process: Goal Directed, Linear Thought Content: Unremarkable Hallucination Type: Auditory Attention and Concentration: Good Suicidal Ideation: No Previous Suicide Attempts: No Homicidal Ideation: No Previous Homicide Attempts: No Judgement: Poor Affect: Sad Mood: Sad Assessment & Plan Problem List: (1) Depression Assessment & Plan: The patient is a 26-year-old man, domicile with his mother, with psychiatric history of bipolar disorder, anxiety, cerebral palsy, some level of intellectual disability, hospitalized here at [place] in 2014, no previous suicidal attempts, psychiatric follow-up with Dr. German, medical history of legal blindness, who was admitted in the psychiatric weiss as per outpatient psychiatrist request due to suicidal ideation and depression in the context of recent changes in his psychotropics. on Evaluation today patient is lab live, irritable, superficially cooperative complaining of acute anxiety, he reports ambivalent suicidal ideation, no specific plan, he reports hearing ringing noises in his ears. He seems to be distressed, regulated, disruptive in the unit. Patient has an increased risk of suicidality and needs psychiatric admission for stabilization and safety. Will give Ativan 2 mg by mouth stat for acute anxiety. Continue olanzapine 10 mg at bedtime. Will order clonazepam 0.5 mg twice a day. ICD Code: F32.9 Assessment & Plan Estimated LOS: days Problem Qualifiers (1) Depression: Qualified Code: F32.9 - Depression, unspecified depression type Alexey Michael MD Dec 06, 2016 14:21
[2016-12-06] MEDS: clonazePAM 0.5 MG TAB PO SCH ×2 (14:30→21:10)
[2016-12-06 19:53] VITALS: BP 138/87; PULSE 107; RESP 18; TEMP 98.9; O2SAT 96
[2016-12-06] MEDS: OLANZapine 10 MG TAB PO SCH (21:00)
[2016-12-06] MEDS: ACETAMINOPHEN 325 MG TAB PO PRN (21:11)
[2016-12-07 05:47] VITALS: BP 141/88; PULSE 92; RESP 16; TEMP 97.5; O2SAT 95
[2016-12-07] MEDS: clonazePAM 0.5 MG TAB PO SCH ×2 (08:14→21:11)
[2016-12-07] MEDS: MELOXICAM 7.5 MG TAB PO SCH (08:14)
[2016-12-07] MEDS: ACETAMINOPHEN 325 MG TAB PO PRN (08:16)
[2016-12-07 10:04] LABS: HEMOGLOBIN A1b 0.8 %; HEMOGLOBIN Ao 87.2 %; HEMOGLOBIN F 0.9 %; HEMOGLOBIN LA1C 1.7 %; HEMOGLOBIN P3 3.2 %
--- NOTE | 2016-12-07 14:09 | HHI.PYPN ---
Subjective Remarks Patient was seen and case discussed with nursing. This a second opinion for Dr. Barlow. Patient minimizes his suicidal thoughts and depressed mood before admission. Says he is feeling "good." Visibly anxious, rocking back and forth. His compliant with his medications. Not complaining of intrusive thoughts. Per nursing he slept well patient said he does not remember. Otherwise, behaving well on the unit and compliant with medications Objective Alert: Yes [place]: Person (person), Place, Date (partial to date) Mood: Anxious, Depressed Affect: Restricted Memory Intact: Comment (not formally tetsed) Hallucinations: Other (deneis) Delusions: No Delusion Type: Other Suicidal: Ideation (of jumping in traffic or jumping in the ocean while on a cruise) Homicidal: Ideation (negative) Insight/Judgement Poor Vitals/IOs Vital Signs Date Time Temp Pulse Resp B/P Pulse Ox O2 Delivery O2 Flow Rate FiO2 12/07/16 05:47 97.5 92 16 141/88 95 12/05/16 06:16 Room Air Assessment & Plan Problem List: (1) Depression ICD Code: F32.9 Assessment & Plan I agree with first opinion to continue petition. Criteria include suicidal ideation and depressed mood Justification for Cont. Inpt. Patient will decompensate in a less restrictive setting Problem Qualifiers (1) Depression: Qualified Code: F32.9 - Depression, unspecified depression type Solo Geller DO Dec 07, 2016 14:09
[2016-12-07] MEDS ORDERED: amLODIPine BESYLATE 5 MG TAB PO ONE (14:45)
--- NOTE | 2016-12-07 14:53 | PD.CONS ---
HPI Service [facility] Hospitalists Consult Requested By Dr Geller Reason for Consult medical management Primary Care Physician Otto Pinto DO Diagnoses: History of Present Illness 26 yo male. blind, with h/o BD. The hospitalist is consulted for evaluation of fingertips turning blue color. Patient never smoked and is from [place]. Patient is also noted with tachycardia and elevated BP. He is satting well on room air, no hypoxia. No h/o copd or asthma. Will start CCB as patient with elevated BP and also might help if he has Raynaud 's phenomena. Review of records shows ECHO in 2012 normal EF and trace tricuspid regurgitation. He also has a h/o hand surgery carpal tunnel release. Per nurse he was playing outside on /off. Today temperature outside is into a lower side. Patient fingers are bluish on examination, warming up and turning into pink and only the nailbeds are blue now. He doesn't remember having blue fingers in the past but remembers he had a h/o murmur. No cp, sob, cough, fever or chills. His toes are not blue and also tongue has normal color. Review of Systems Except as stated in HPI: all other systems reviewed are Neg 12 system ROS reviewed and negative except as mentioned in HPI Past Family Social History Allergies: Coded Allergies: Sulfa (Verified Allergy, Severe, Rash, 08/11/16) Past Medical History Bipolar disorder Carpal tunnel syndr Past Surgical History carpal tunnel release Active Ordered Medications Reported Meds & Active Scripts Active Reported Benadryl Allergy (Diphenhydramine HCl) 25 Mg Tab 25 Mg PO Q6H PRN Mobic (Meloxicam) 7.5 Mg Tab 7.5 Mg PO DAILY Aleve (Naproxen Sodium) 220 Mg Tab 1 Tab PO DAILY PRN Trazodone (Trazodone HCl) 50 Mg Tab 1 Tab PO HS Olanzapine 10 Mg Tab 1 Tab PO HS Family History Says family is healthy Social History Never smoked. Never etoh or illicit drug use. Physical Exam Vital Signs Vital Signs Date Time Temp Pulse Resp B/P Pulse Ox O2 Delivery O2 Flow Rate FiO2 12/07/16 05:47 97.5 92 16 141/88 95 12/06/16 19:53 98.9 107 18 138/87 96 Physical Exam GENERAL: This is a very pleasant 26 yo legally blind male, skinny, well- nourished, well-developed patient, in no apparent distress. SKIN: Fingerbeds are with bluish discoloration, however per nurse his fingertips were blue earlier. His toes are not blue and also tongue has normal color. No rashes, ecchymoses or lesions. HEAD: Atraumatic. Normocephalic. No temporal or scalp tenderness. EYES: Pupils equal round and reactive. Extraocular motions intact. No scleral icterus. No injection or drainage. ENT: Nose without bleeding, purulent drainage or septal hematoma. Throat without erythema, tonsillar hypertrophy or exudate. Uvula midline. Airway patent. NECK: Trachea midline. No JVD or lymphadenopathy. Supple, nontender, no meningeal signs. CARDIOVASCULAR: Regular rate and rhythm without murmurs, gallops, or rubs. RESPIRATORY: Clear to auscultation. Breath sounds equal bilaterally. No wheezes , rales, or rhonchi. GASTROINTESTINAL: Abdomen soft, non-tender, nondistended. No hepato-splenomegaly , or palpable masses. No guarding. MUSCULOSKELETAL: Extremities without clubbing, cyanosis, or edema. No joint tenderness, effusion, or edema noted. No calf tenderness. Negative Homans sign bilaterally. NEUROLOGICAL: Awake and alert. Cranial nerves II through XII intact. Motor and sensory grossly within normal limits. Five out of 5 muscle strength in all muscle groups. Normal speech. Result Diagram: 12/06/16 0702 Assessment and Plan Assessment and Plan 26 yo male with PmH of bipolar disorder, carpal tunnel sdr Bipolar disorder. Management oer psych Per psych fingertips turning blue. Poss Raynaud's. Patient never a smoker. 2D ECHO from records reviewed with normal EF , trace tricuspid regurgitation. Patient is also noted with elevated BP. will start CCB as might help with Raynaud's and improve the BP. monitor BP and O2 saturation. Patient is satting well on rom air at this time. Will repeat 2D ECHO. Thank you for this consultation. If improved with CCB , BP controlled and normal ECHO will sign off. Will follow along at this time. Code Status full code Discussed Condition With patient. nurse, Aaliyah Valle MD Dec 07, 2016 14:53
[2016-12-07 18:32] VITALS: BP 140/74; PULSE 77; RESP 16; TEMP 97.8; O2SAT 98
[2016-12-07] MEDS: OLANZapine 10 MG TAB PO SCH (21:00)
[2016-12-08] MEDS: ACETAMINOPHEN 325 MG TAB PO PRN (04:47)
[2016-12-08 06:30] VITALS: BP 151/81; PULSE 113; RESP 16; TEMP 98.7; O2SAT 96
[2016-12-08] MEDS: amLODIPine BESYLATE 5 MG TAB PO SCH (08:41)
[2016-12-08] MEDS: MELOXICAM 7.5 MG TAB PO SCH (08:41)
[2016-12-08] MEDS: clonazePAM 0.5 MG TAB PO SCH (08:41)
--- NOTE | 2016-12-08 13:12 | HHI.PYPN ---
Subjective Remarks Patient seen with treatment team and medical student Cindy, patient overall calm and cooperative with the treatment team will those will initial anxiety, states he lives by himself with support from his family and appears primarily his mother and his manager case management. He states he was getting somewhat depressed did write a suicide note to his family. Both today states he is not depressed. It appears a stressor in his life my per the fact that his parents just got about 2-3 weeks ago. He has a younger brother who also just her college. He is vague about any significant alcohol or drug use of the family. They states at times he has had a little contentiousness with his mother. This is vagueness about any auditory hallucinations though the might be some type of auditory sounds in his head. He does acknowledge the suicidal thoughts, this some guilt about "something bad" that he might have done. And also appears he has a counselor and does have a psychiatrist in the community. We will have the counselor attempt to reach patient's mother she can come in for a family session tomorrow morning. I did review the medications. It appears with the med reconciliation the patient was on trazodone 50 mg at at bedtime. But no benzodiazepines. It appears she has been on scheduled Klonopin for about 2 days. The reviewing of his past contact was is been use of Ativan over the past few years. I will also discontinue the Klonopin and change the Zyprexa from at bedtime to a.m. Hopeless be short stay patient can return to his own apartment. He also stated he has a good relationship with his father and would possibly consider staying with them for a while. Review of Systems Constitutional: DENIES: Diaphoretic episodes, Fatigue, Fever, Weight gain, Weight loss, Chills, Dizziness, Change in appetite, Night Sweats Endocrine: DENIES: Heat/cold intolerance, Polydipsia, Polyuria, Polyphagia Eyes: COMPLAINS OF: Vision loss Ears, nose, mouth, throat: DENIES: Tinnitus, Hearing loss, Vertigo, Nasal discharge, Oral lesions, Throat pain, Hoarseness, Ear Pain, Running Nose, Epistaxis, Sinus Pain, Toothache, Odynophagia Respiratory: DENIES: Apneas, Cough, Snoring, Wheezing, Hemoptysis, Sputum production, Shortness of breath Cardiovascular: DENIES: Chest pain, Palpitations, Syncope, Dyspnea on Exertion , PND, Lower Extremity Edema, Orthopnea, Claudication Gastrointestinal: DENIES: Abdominal pain, Black stools, Bloody stools, Constipation, Diarrhea, Nausea, Vomiting, Difficulty Swallowing, Anorexia Genitourinary: DENIES: Sexual dysfunction, Urinary frequency, Urinary incontinence, Urgency, Hematuria, Dysuria, Nocturia, Penile Discharge, Testicular Pain, Testicular Swelling Musculoskeletal: DENIES: Joint pain, Muscle aches, Stiffness, Joint Swelling, Back pain, Neck pain Integumentary: DENIES: Abnormal pigmentation, Nail changes, Pruritus, Rash Hematologic/lymphatic: DENIES: Bruising, Lymphadenopathy Immunologic/allergic: DENIES: Eczema, Urticaria Neurologic: DENIES: Abnormal gait, Headache, Localized weakness, Paresthesias, Seizures, Speech Problems, Tremor, Poor Balance Psychiatric: COMPLAINS OF: Anxiety, Depression, Hallucinations (vague) Objective Alert: Yes [place]: Person (person), Place, Date (partial to date) Mood: Anxious, Depressed Affect: Restricted Memory Intact: Comment (not formally tetsed) Hallucinations: Auditory (vague ambiguous) Delusions: No Delusion Type: Other Suicidal: Ideation (of jumping in traffic or jumping in the ocean while on a cruise) Homicidal: Ideation (negative) Insight/Judgement Poor Vitals/IOs Vital Signs Date Time Temp Pulse Resp B/P Pulse Ox O2 Delivery O2 Flow Rate FiO2 12/08/16 06:30 98.7 113 16 151/81 96 12/05/16 06:16 Room Air Assessment & Plan Problem List: (1) Major depressive disorder, recurrent episode, moderate ICD Code: F33.1 Assessment & Plan Estimated LOS: days patient continues depressed though denying suicidality, there is a vagueness about any perceptual abnormalities. The attempt to reach and schedule appointment patient's mother tomorrow. Please see medication adjustments above Justification for Cont. Inpt. At this time patient will decompensate a place to the lower level of care Discharge Planning To be determined Keven Perez MD Dec 08, 2016 13:12
--- NOTE | 2016-12-08 14:08 | HHI.PR ---
Subjective Remarks In the chair. No bluish discoloration noted today. He denies any chest pain, sob , n/v/d/c. Objective Vitals Vital Signs Date Time Temp Pulse Resp B/P Pulse Ox O2 Delivery O2 Flow Rate FiO2 12/08/16 06:30 98.7 113 16 151/81 96 12/07/16 18:32 97.8 77 16 140/74 98 Result Diagram: 12/06/16 0702 Objective Remarks GENERAL: This is a very pleasant 26 yo legally blind male, skinny, well- nourished, well-developed patient, in no apparent distress. SKIN: Fingerbeds without bluish discoloration. His toes are not blue and also tongue has normal color. No rashes, ecchymoses or lesions. HEAD: Atraumatic. Normocephalic. No temporal or scalp tenderness. EYES: Pupils equal round and reactive. Extraocular motions intact. No scleral icterus. No injection or drainage. ENT: Nose without bleeding, purulent drainage or septal hematoma. Throat without erythema, tonsillar hypertrophy or exudate. Uvula midline. Airway patent. NECK: Trachea midline. No JVD or lymphadenopathy. Supple, nontender, no meningeal signs. CARDIOVASCULAR: Regular rate and rhythm without murmurs, gallops, or rubs. RESPIRATORY: Clear to auscultation. Breath sounds equal bilaterally. No wheezes , rales, or rhonchi. GASTROINTESTINAL: Abdomen soft, non-tender, nondistended. No hepato-splenomegaly , or palpable masses. No guarding. MUSCULOSKELETAL: Extremities without clubbing, cyanosis, or edema. No joint tenderness, effusion, or edema noted. No calf tenderness. Negative Homans sign bilaterally. NEUROLOGICAL: Awake and alert. Cranial nerves II through XII intact. Motor and sensory grossly within normal limits. Five out of 5 muscle strength in all muscle groups. Normal speech. A/P Assessment and Plan 26 yo male with PmH of bipolar disorder, carpal tunnel sdr Bipolar disorder. Management oer psych Per psych fingertips turning blue. Poss Raynaud's. Patient never a smoker. 2D ECHO from records reviewed with normal EF, trace tricuspid regurgitation. Patient is also noted with elevated BP. continue CCB as might help with Raynaud's and improve the BP. Monitor BP and O2 saturation. Patient is satting well on room air. 2D ECHO pending. Thank you for this consultation. If improved with CCB , BP controlled and normal ECHO will sign off. Will follow along at this time. Code Status full code Discussed Condition With patient, nurse Aaliyah Valle MD Dec 08, 2016 14:08
[2016-12-08 19:47] VITALS: BP 121/69; PULSE 106; RESP 16; TEMP 97.5; O2SAT 94
[2016-12-08] MEDS: OLANZapine 10 MG TAB PO SCH (21:00)
--- NOTE | 2016-12-08 21:01 | EC ---
Study Study Date:12/08/2016 STUDY CONCLUSIONS SUMMARY - Left ventricle: The cavity size was normal. Wall thickness was normal. Systolic function was normal. The estimated ejection fraction was 60%. Wall motion was normal; there were no regional wall motion abnormalities. - Pulmonary arteries: PA peak pressure: 31mm Hg (S). If LV function is below 40, please consider prescribing an ACEI or ARB or document rationale for non-use. PROCEDURE DATA STUDY STATUS: Elective. Procedure: Transthoracic echocardiography. Image quality was good. Scanning was performed from the parasternal, apical, and subcostal acoustic windows. Study completion: The patient tolerated the procedure well. Transthoracic echocardiography. M-mode, complete 2D, complete spectral Doppler, and color Doppler. Patient status: Inpatient. CARDIAC ANATOMY LEFT VENTRICLE: The cavity size was normal. Wall thickness was normal. Systolic function was normal. The estimated ejection fraction was 60%. Wall motion was normal; there were no regional wall motion abnormalities. AORTIC VALVE: Trileaflet; normal thickness leaflets. Doppler: Transvalvular velocity was within the normal range. There was no stenosis. No regurgitation. AORTA: Aortic root: The aortic root was normal in size. MITRAL VALVE: Structurally normal valve. Doppler: Transvalvular velocity was within the normal range. There was no evidence for stenosis. Trace regurgitation. LEFT ATRIUM: The atrium was normal in size. RIGHT VENTRICLE: The cavity size was normal. Wall thickness was normal. PULMONIC VALVE: Doppler: Transvalvular velocity was within the normal range. There was no evidence for stenosis. No regurgitation. TRICUSPID VALVE: Structurally normal valve. Doppler: Transvalvular velocity was within the normal range. Trace regurgitation. PULMONARY ARTERY: The main pulmonary artery was normal-sized. Systolic pressure was within the normal range. RIGHT ATRIUM: The atrium was normal in size. PERICARDIUM: There was no pericardial effusion. SYSTEMIC VEINS: Inferior vena cava: The vessel was normal in size. BASIC MEASUREMENTS ADULT Normal Left ventricle LV internal dimension, ED, chordal level, *39.1 mm 43-52 PLAX LV internal dimension, ES, chordal level, 30.1 mm 23-38 PLAX Fractional shortening, chordal level, PLAX *23 % >29 LV posterior wall thickness, ED 9.52 mm IVS/LVPW ratio, ED 1.06 <1.3 Ventricular septum Septal thickness, ED 10.1 mm Aortic valve Leaflet separation 21 mm 15-26 Right ventricle RV internal dimension, ED, PLAX 24.3 mm 19-38 BASIC MEASUREMENTS ADULT Normal Aortic valve Leaflet separation 21 mm 15-26 Aorta Root diameter, ED 31 mm 20-37 Left atrium Anterior-posterior dimension, ES 29 mm 19-40 LA/aortic root ratio 0.94 DOPPLER MEASUREMENTS ADULT Normal Main pulmonary artery Pressure, S *31 mm Hg =30 Tricuspid valve Regurgitant peak velocity 229 cm/s Peak RV-RA gradient, S 21 mm Hg Systemic veins Estimated CVP 10 mm Hg Right ventricle RV pressure, S *31 mm Hg <30 LEGEND: Mean values are shown as u=mean value. Asterisk (*) hernandez values outside specified normal range. Smith Pritchett [id number]
[2016-12-08] MEDS: traZODone HCL 50 MG TAB PO SCH (21:13)
[2016-12-08] MEDS: diphenhydrAMINE HCL 50 MG CAP PO PRN (22:57)
[2016-12-09 05:54] VITALS: BP 108/58; PULSE 83; RESP 17; TEMP 97.9; O2SAT 96
[2016-12-09] MEDS: OLANZapine 10 MG TAB PO SCH (09:00)
[2016-12-09] MEDS: amLODIPine BESYLATE 5 MG TAB PO SCH (09:00)
[2016-12-09] MEDS: MELOXICAM 7.5 MG TAB PO SCH (09:00)
--- NOTE | 2016-12-09 12:56 | PD.PN.STU ---
Subjective Remarks "Im feeling much better" Objective Vitals Vital Signs Date Time Temp Pulse Resp B/P Pulse Ox O2 Delivery O2 Flow Rate FiO2 12/09/16 05:54 97.9 83 17 108/58 96 12/08/16 19:47 97.5 106 16 121/69 94 Result Diagram: 12/06/16 0702 Objective Remarks Discussed patient with mother, here at [facility]. She endorses the previous history of patients first hospitalization less than two years ago due to "sleep deprivation" due to patient being "addicted" to online video games and the computer. 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 He is now involved with playing games on the computer late at night and has stopped all daily structured activities due to "laziness" . She also endorses that the patient could have been upset over recent divorce between her and his father which was unexpected to him. When asked about relationships, she endorses that he may have had a girlfriend interest recently which did not work out and may have contributed to his recent depression. She would like to get him involved with more structured daily activities and is agreeable to getting patient involved with [facility]. A/P Assessment and Plan Patients hospital stay remains stable. Patients mother has agreed patient should stay with her after D/C for a week or two for a transition period. Patient is agreeable to staying with mother and getting involved with [facility] as outpatient. Will keep patient for 1-2 more days for further observation before D /C home. Bother patient and mother agreeable with plan. All questions answered. Above progress note noted and reviewed and agreed with. Patient seen independently by me with independent progress note written Isabelle Hi M3 Dec 09, 2016 12:56 Keven Perez MD Dec 15, 2016 15:30
--- NOTE | 2016-12-09 13:58 | HHI.PR ---
Subjective Remarks Patient playing bingo. Patient in nad. No discoloration of his fingers. No n/v/d /c. Denies cp, sob. Objective Vitals Vital Signs Date Time Temp Pulse Resp B/P Pulse Ox O2 Delivery O2 Flow Rate FiO2 12/09/16 05:54 97.9 83 17 108/58 96 12/08/16 19:47 97.5 106 16 121/69 94 Result Diagram: 12/06/16 0702 Objective Remarks GENERAL: This is a very pleasant 26 yo legally blind male, skinny, well- nourished, well-developed patient, in no apparent distress. SKIN: Fingerbeds without bluish discoloration. His toes are not blue and also tongue has normal color. No rashes, ecchymoses or lesions. HEAD: Atraumatic. Normocephalic. No temporal or scalp tenderness. EYES: Pupils equal round and reactive. Extraocular motions intact. No scleral icterus. No injection or drainage. ENT: Nose without bleeding, purulent drainage or septal hematoma. Throat without erythema, tonsillar hypertrophy or exudate. Uvula midline. Airway patent. NECK: Trachea midline. No JVD or lymphadenopathy. Supple, nontender, no meningeal signs. CARDIOVASCULAR: Regular rate and rhythm without murmurs, gallops, or rubs. RESPIRATORY: Clear to auscultation. Breath sounds equal bilaterally. No wheezes , rales, or rhonchi. GASTROINTESTINAL: Abdomen soft, non-tender, nondistended. No hepato-splenomegaly , or palpable masses. No guarding. MUSCULOSKELETAL: Extremities without clubbing, cyanosis, or edema. No joint tenderness, effusion, or edema noted. No calf tenderness. Negative Homans sign bilaterally. NEUROLOGICAL: Awake and alert. Cranial nerves II through XII intact. Motor and sensory grossly within normal limits. Five out of 5 muscle strength in all muscle groups. Normal speech. A/P Assessment and Plan 26 yo male with PmH of bipolar disorder, carpal tunnel sdr Bipolar disorder. Management oer psych Per psych fingertips turning blue. Poss Raynaud's. Patient never a smoker. 2D ECHO from records reviewed with normal EF, trace tricuspid regurgitation. Patient is also noted with elevated BP. continue CCB as might help with Raynaud's and improve the BP. Monitor BP and O2 saturation. Patient is satting well on room air. 2D ECHO normal EF 60%, mild mitral valve regurgitation Thank you for this consultation. Patient is stable, will sign off. Please reconsult hospitalist as need. Code Status full code Discussed Condition With patient, nurse Aaliyah Valle MD Dec 09, 2016 13:58
--- NOTE | 2016-12-09 14:25 | HHI.PYPN ---
Subjective Remarks Patient seen in my office with his mother, counselor Magali, nurse Shraddha, and medical student Cindy. Patient showing some calming of his behavior also showing some insight into the wall perhaps of poor sleep habits and excessive use of the computer and games play with his loss of control. He has been compliant medications does feel better today than when he was admitted. Patient 's mother also notices some improvement in his behavior and his demeanor. She states she feels is poor sleep habits and computer habits are significant component of his problem. We did discuss discharge plans it appears referral Mr. Ion guan might be appropriate related to the other programs they have they could assist this young man. At the present time we'll continue medication no change Review of Systems Except as stated in HPI: all other systems reviewed are Neg Objective Alert: Yes [place]: Person (person), Place, Date (partial to date) Mood: Anxious, Depressed Affect: Restricted Memory Intact: Comment (not formally tetsed) Hallucinations: Auditory (vague ambiguous) Delusions: No Delusion Type: Other Suicidal: Ideation (of jumping in traffic or jumping in the ocean while on a cruise) Homicidal: Ideation (negative) Insight/Judgement Poor Vitals/IOs Vital Signs Date Time Temp Pulse Resp B/P Pulse Ox O2 Delivery O2 Flow Rate FiO2 12/09/16 05:54 97.9 83 17 108/58 96 Assessment & Plan Problem List: (1) Major depressive disorder, recurrent episode, moderate ICD Code: F33.1 Assessment & Plan Estimated LOS: days patient remains depressed that appears his suicidality has resolved, it appears that the psychotic flavor with them is also softening. Compliant medications. For now continue treatment Justification for Cont. Inpt. At this time patient will decompensate and placed in the lower level of care Discharge Planning To be determined perhaps through [facility] Keven Perez MD Dec 09, 2016 14:25
[2016-12-09 21:19] VITALS: BP 157/67; PULSE 108; RESP 16; TEMP 99; O2SAT 96
[2016-12-09] MEDS: diphenhydrAMINE HCL 50 MG CAP PO PRN (21:39)
[2016-12-09] MEDS: traZODone HCL 50 MG TAB PO SCH (21:39)
[2016-12-10] MEDS: ACETAMINOPHEN 325 MG TAB PO PRN (01:10)
[2016-12-10] MEDS: diphenhydrAMINE HCL 50 MG CAP PO PRN (04:00)
[2016-12-10 05:51] VITALS: BP 136/63; PULSE 97; RESP 18; TEMP 97.2; O2SAT 97
[2016-12-10] MEDS: OLANZapine 10 MG TAB PO SCH ×2 (08:46→21:00)
[2016-12-10] MEDS: amLODIPine BESYLATE 5 MG TAB PO SCH (08:46)
[2016-12-10] MEDS: MELOXICAM 7.5 MG TAB PO SCH (08:46)
--- NOTE | 2016-12-10 14:15 | HHI.PYPN ---
Subjective Remarks Patient seen in room with nurse Bernadette, chart review, patient overall calm cooperative now denies suicidality homicidality voices or visions. Does complain of some poor sleep with initial and mid. Questions whether he would benefit from some Benadryl. For now will increase trazodone to 100 mg at bedtime. Also split his dose of Zyprexa to 5 mg twice a day. Also distally feel patient does have capacity to sign voluntary. He is willing to do that and stimulus a couple more days thus I'll lift the [place] act allow her to sign voluntary Review of Systems Except as stated in HPI: all other systems reviewed are Neg Objective Alert: Yes [place]: Person (person), Place, Date (partial to date) Mood: Anxious, Depressed Affect: Restricted Memory Intact: Comment (not formally tetsed) Hallucinations: Auditory (vague ambiguous) Delusions: No Delusion Type: Other Suicidal: Ideation (of jumping in traffic or jumping in the ocean while on a cruise) Homicidal: Ideation (negative) Insight/Judgement Poor Vitals/IOs Vital Signs Date Time Temp Pulse Resp B/P Pulse Ox O2 Delivery O2 Flow Rate FiO2 12/10/16 05:51 97.2 97 18 136/63 97 Intake and Output 12/09/16 12/09/16 12/10/16 08:00 16:00 00:00 Intake Total 480 ml Balance 480 ml Assessment & Plan Problem List: (1) Major depressive disorder, recurrent episode, moderate ICD Code: F33.1 Assessment & Plan Estimated LOS: days patient depression is slowly lifting, does denies suicidality at this time, complaints asleep issues please see medication adjustments above. At this time will lift [place] act and allow the patient to sign voluntary Justification for Cont. Inpt. At this time patient will decompensate if placed in a lower level of care Discharge Planning To be determined Keven Perez MD Dec 10, 2016 14:15
[2016-12-10 18:00] VITALS: BP 160/74; PULSE 98; RESP 18; TEMP 98.1; O2SAT 96
[2016-12-10] MEDS: traZODone HCL 50 MG TAB PO SCH (21:07)
[2016-12-11] MEDS: diphenhydrAMINE HCL 50 MG CAP PO PRN ×2 (00:25→21:14)
[2016-12-11 05:37] VITALS: BP 124/60; PULSE 99; RESP 18; TEMP 97.2; O2SAT 95
[2016-12-11] MEDS: amLODIPine BESYLATE 5 MG TAB PO SCH (08:28)
[2016-12-11] MEDS: MELOXICAM 7.5 MG TAB PO SCH (08:28)
[2016-12-11] MEDS: OLANZapine 10 MG TAB PO SCH ×2 (08:32→21:00)
--- NOTE | 2016-12-11 12:33 | HHI.PYPN ---
Subjective Remarks Patient seen in [place] with floor staff, patient overall calm cooperative though states his sleep is still not what he would like, I did remind him of the adjustment trazodone done yesterday. He states his depression and suicidality of lift of the night complains of some anxiety. Shared with him that I do not wish to offer him any class of medications that could be addictive would develop tolerance that we'll work with her existing medications he seemed cope with that quite well. However he did state that her remain some faint auditory hallucinations "very faint mostly music" for now continue treatment no change Review of Systems Except as stated in HPI: all other systems reviewed are Neg Objective Alert: Yes [place]: Person (person), Place, Date (partial to date) Mood: Anxious, Depressed Affect: Restricted Memory Intact: Comment (not formally tetsed) Hallucinations: Auditory (vague ambiguous) Delusions: No Delusion Type: Other Suicidal: Ideation (of jumping in traffic or jumping in the ocean while on a cruise) Homicidal: Ideation (negative) Insight/Judgement Very poor Vitals/IOs Vital Signs Date Time Temp Pulse Resp B/P Pulse Ox O2 Delivery O2 Flow Rate FiO2 12/11/16 05:37 97.2 99 18 124/60 95 Assessment & Plan Problem List: (1) Major depressive disorder, recurrent episode, moderate ICD Code: F33.1 Assessment & Plan Estimated LOS: days patient mood appears to be softening, but does acknowledge now some vague auditory hallucinations. Still some mild drug-seeking. For now continue treatment Justification for Cont. Inpt. This time patient will decompensate if placed on the lower level of care Discharge Planning To be determined Keven Perez MD Dec 11, 2016 12:33
[2016-12-11 18:45] VITALS: BP 140/72; PULSE 121; RESP 18; TEMP 98.1; O2SAT 95
[2016-12-11] MEDS: traZODone HCL 50 MG TAB PO SCH (21:13)
[2016-12-12 05:24] VITALS: BP 146/72; PULSE 119; RESP 18; TEMP 98.6
[2016-12-12] MEDS: amLODIPine BESYLATE 5 MG TAB PO SCH (08:17)
[2016-12-12] MEDS: MELOXICAM 7.5 MG TAB PO SCH (08:17)
[2016-12-12] MEDS: OLANZapine 10 MG TAB PO SCH ×2 (08:19→21:00)
[2016-12-12 09:05] VITALS: BP 120/70; PULSE 100; O2SAT 98
--- NOTE | 2016-12-12 10:40 | HHI.PYPN ---
Subjective Remarks Patient seen in day room with nurse Greco. Chart review. Upon review of patient' s vital signs there is been a consistency with somewhat elevated pulse. Today running up from 09/11/19. Patient does not complain of chest pain or shortness of breath or radiating pain. The he does continue to complain of anxiety ask for some "anxiety pill". Will get EKG and reconsult hospitalist to assess the tachycardia. We will start patient on BuSpar 5 mg 3 times a day Review of Systems Except as stated in HPI: all other systems reviewed are Neg Objective Alert: Yes [place]: Person (person), Place, Date (partial to date) Mood: Anxious, Depressed Affect: Restricted Memory Intact: Comment (not formally tetsed) Hallucinations: Auditory (vague ambiguous) Delusions: No Delusion Type: Other Suicidal: Ideation (of jumping in traffic or jumping in the ocean while on a cruise) Homicidal: Ideation (negative) Insight/Judgement Poor Vitals/IOs Vital Signs Date Time Temp Pulse Resp B/P Pulse Ox O2 Delivery O2 Flow Rate FiO2 12/12/16 09:05 100 120/70 98 12/12/16 05:24 98.6 18 Intake and Output 12/11/16 12/11/16 12/12/16 08:00 16:00 00:00 Intake Total 480 ml Balance 480 ml Assessment & Plan Problem List: (1) Major depressive disorder, recurrent episode, moderate ICD Code: F33.1 Assessment & Plan Estimated LOS: days patient states depression is getting better though anxiety is increasing. Live noticed a trend towards tachycardia will get EKG and reconsult hospitalist Justification for Cont. Inpt. At this time patient will decompensate if placed in the lower level of care Discharge Planning To be determined Keven Perez MD Dec 12, 2016 10:40
[2016-12-12] MEDS: busPIRone HCL 5 MG TAB PO SCH ×2 (13:54→18:08)
--- NOTE | 2016-12-12 17:44 | HHI.PR ---
Subjective Remarks Reconsulted - elevated BP, elevated heart rate Patient seen today. He was in the recreational room. Outside doing activities. Reports he was doing well. He is being treated for elevated BP and heart rate during admission with cc Norvasc 2.5 mg daily. However reported to have elevated heart rate. Denies pain and discomfort. Denies SOB/ dyspnea. Denies chest pain, palpitations, headaches, dizziness. Denies fevers, chills, n/v/d. Objective Vitals Vital Signs Date Time Temp Pulse Resp B/P Pulse Ox O2 Delivery O2 Flow Rate FiO2 12/12/16 09:05 100 120/70 98 12/12/16 05:24 98.6 119 18 146/72 12/11/16 18:45 98.1 121 18 140/72 95 140/ I/O 12/11/16 12/11/16 12/11/16 12/12/16 12/12/16 12/12/16 06:59 14:59 22:59 06:59 14:59 22:59 Intake Total 480 ml Balance 480 ml Intake Oral 480 ml Objective Remarks GENERAL: This is a well-nourished, well-developed patient, in no apparent distress. HEENT: Normocephalic. Blind. Nose without bleeding. Airway patent. NECK: Trachea midline. No JVD. Supple. CARDIOVASCULAR: Tachycardia rate and rhythm without murmurs, gallops, or rubs. RESPIRATORY: Clear to auscultation. Breath sounds equal bilaterally. No wheezes , rales, or rhonchi. GASTROINTESTINAL: Abdomen soft, non-tender, nondistended. Bowel Sounds normoactive x4. MUSCULOSKELETAL: Extremities without clubbing, cyanosis, or edema. NEUROLOGICAL: Awake and alert. Oriented 3. FUENTES. Normal speech. 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 As per records, patient is severely depressed secondary to manipulation of his medications and with severe anxiety. Patient is also experiencing suicidal thoughts, mostly in his dreams and it scares him. He is now admitted to inpatient psychiatry unit for further evaluation. Consulted for medical management. Patient previously seen for possible Raynaud's, fingertips turning blue. Patient was never a smoker. He was started on amlodipine 2.5 mg daily. HTN Tachycardia - Patient is on amlodipine 2.5 mg by mouth daily - Recent echo 12/08/16 showed left ventricle cavity size was normal. EF 60%. No regional wall motion abnormalities. JASPREET 31 mmHg - EKG shows sinus tachycardia 111, with possible left atrial enlargement, borderline right axis deviation - Patient has been in and out of the hospital with elevated heart rate most likely secondary to anxiety as patient has been reported to have panic attacks. Labs were reviewed, H&H 18.7/53.2 possibly related to some dehydration. Plan to repeat labs tomorrow morning. Encouraged patient to increase by mouth fluid intake. - Will follow up lab results. We'll defer educations for now. DVT prop ambulatory Thank you for this reconsultation. We will follow patient with you. Written by Eduardo Plascencia, acting as scribe for Dr. Alegre on 12/12/16 at 16:44. The documentation accurately reflects the work performed [id number] by me on at 16:44. Problem Qualifiers (1) Depression: Qualified Code: F32.9 - Depression, unspecified depression type Eduardo Perez Dec 12, 2016 17:44 Ender Alegre DO Dec 12, 2016 22:39
[2016-12-12 19:27] VITALS: BP 136/70; PULSE 99; RESP 16; TEMP 98.3; O2SAT 98
[2016-12-12] MEDS: traZODone HCL 50 MG TAB PO SCH (21:30)
--- NOTE | 2016-12-12 22:36 | EKG ---
Date Performed: 12/12/2016 Time Performed: 11:01:23 PTAGE: 26 years EKG: SINUS TACHYCARDIA POSSIBLE LEFT ATRIAL ENLARGEMENT BORDERLINE RIGHT AXIS DEVIATION ABNORMAL RHYTHM ECG PREVIOUS TRACING : 12/02/2016 11.20 DOCTOR: Vipin Harkins Interpretating Date/Time 12/12/2016 22:35:10
[2016-12-13 06:29] VITALS: BP 134/70; PULSE 96; RESP 18; TEMP 98.1; O2SAT 97
[2016-12-13 08:44] LABS: AUTOMATED NEUTROPHIL # 5.4 TH/MM3 (1.8-7.7); BASOPHIL % 0.3 % (0.0-2.0); EOSINOPHIL # 0.1 TH/MM3 (0-0.4); EOSINOPHIL % 1.3 % (0.0-4.0); HEMATOCRIT 52.2 % (39.0-51.0); HEMO FLAGS DIFF FINAL; LYMPH % 14.8 % (9.0-44.0); MEAN CELL VOLUME 86.9 FL (80.0-100.0); MEAN CORPUSCULAR HEMOGLOBIN 30.2 PG (27.0-34.0); MEAN CORPUSCULAR HGB CONC 34.7 % (32.0-36.0); MONO % 3.5 % (0.0-8.0); NEUT % 80.1 % (16.0-70.0); PLATELET COUNT 203 TH/MM3 (150-450); RED BLOOD COUNT 6.01 MIL/MM3 (4.50-5.90); RED CELL DISTRIBUTION WIDTH 13.7 % (11.6-17.2); WHITE BLOOD COUNT 6.8 TH/MM3 (4.0-11.0)
[2016-12-13] MEDS: amLODIPine BESYLATE 5 MG TAB PO SCH (08:53)
[2016-12-13] MEDS: busPIRone HCL 5 MG TAB PO SCH ×3 (08:53→17:14)
[2016-12-13] MEDS: OLANZapine 10 MG TAB PO SCH ×2 (08:54→21:00)
[2016-12-13] MEDS: MELOXICAM 7.5 MG TAB PO SCH (08:54)
[2016-12-13 09:16] LABS: ALKALINE PHOSPHATASE 81 U/L (45-117); ALT (GPT) 56 U/L (12-78); ANION GAP 7 MEQ/L (5-15); AST (GOT) 20 U/L (15-37); BICARBONATE 26.8 MEQ/L (21.0-32.0); BLOOD UREA NITROGEN 11 MG/DL (7-18); CHLORIDE 103 MEQ/L (98-107); GLOMERULAR FILTRATION RATE 89 ML/MIN (>89); POTASSIUM 3.4 MEQ/L (3.5-5.1); SODIUM (NA) 137 MEQ/L (136-145); TOTAL BILIRUBIN ADULT 1.2 MG/DL (0.2-1.0)
[2016-12-13] MEDS ORDERED: POTASSIUM CHLORIDE 20 MEQ CONTROLLED RELEASE TAB PO ONE (16:30)
--- NOTE | 2016-12-13 18:23 | HHI.PYPN ---
Subjective Remarks Pt seen and discussed with staff. Pt remains hypomania and c/o of paranoia. States that he believes it is the devil. Staff report that he is suspicious of medications. Mother reported to RN that pt had called and was irrational and stating that he was going to . He denies medication side effects. Review of Systems Psychiatric: COMPLAINS OF: Mood changes, Delusions Objective Alert: Yes [place]: Person (person), Place, Date (partial to date) Mood: Anxious, Depressed Affect: Restricted Memory Intact: Comment (not formally tetsed) Hallucinations: Other (none) Delusions: Yes Delusion Type: Paranoid Suicidal: Ideation (of jumping in traffic or jumping in the ocean while on a cruise) Homicidal: Ideation (negative) Insight/Judgement poor Labs Test 12/13/16 12/13/16 07:51 07:57 Sodium Level 137 MEQ/L Potassium Level 3.4 MEQ/L Chloride Level 103 MEQ/L Carbon Dioxide Level 26.8 MEQ/L Anion Gap 7 MEQ/L Blood Urea Nitrogen 11 MG/DL Creatinine 1.02 MG/DL Estimat Glomerular Filtration 89 ML/MIN Rate Random Glucose 131 MG/DL Calcium Level 8.6 MG/DL Total Bilirubin 1.2 MG/DL Aspartate Amino Transf 20 U/L (AST/SGOT) Alanine Aminotransferase 56 U/L (ALT/SGPT) Alkaline Phosphatase 81 U/L Total Protein 7.9 GM/DL Albumin 4.2 GM/DL White Blood Count 6.8 TH/MM3 Red Blood Count 6.01 MIL/MM3 Hemoglobin 18.1 GM/DL Hematocrit 52.2 % Mean Corpuscular Volume 86.9 FL Mean Corpuscular Hemoglobin 30.2 PG Mean Corpuscular Hemoglobin 34.7 % Concent Red Cell Distribution Width 13.7 % Platelet Count 203 TH/MM3 Mean Platelet Volume 9.6 FL Neutrophils (%) (Auto) 80.1 % Lymphocytes (%) (Auto) 14.8 % Monocytes (%) (Auto) 3.5 % Eosinophils (%) (Auto) 1.3 % Basophils (%) (Auto) 0.3 % Neutrophils # (Auto) 5.4 TH/MM3 Lymphocytes # (Auto) 1.0 TH/MM3 Monocytes # (Auto) 0.2 TH/MM3 Eosinophils # (Auto) 0.1 TH/MM3 Basophils # (Auto) 0.0 TH/MM3 CBC Comment DIFF FINAL Differential Comment Vitals/IOs Vital Signs Date Time Temp Pulse Resp B/P Pulse Ox O2 Delivery O2 Flow Rate FiO2 12/13/16 06:29 98.1 96 18 134/70 97 Assessment & Plan Problem List: (1) Severe recurrent major depression with psychotic features ICD Code: F33.3 Assessment & Plan Continue current tx plan. Estimated LOS: days Justification for Cont. Inpt. impairments in reality construction and self care Madison Rhoades MD Dec 13, 2016 18:23
[2016-12-13 18:34] VITALS: BP 121/57; PULSE 101; RESP 18; TEMP 98.7; O2SAT 96
[2016-12-13] MEDS: traZODone HCL 50 MG TAB PO SCH (21:24)
[2016-12-13] MEDS: diphenhydrAMINE HCL 50 MG CAP PO PRN (22:38)
[2016-12-14 06:29] VITALS: BP 136/65; PULSE 100; RESP 18; TEMP 98.3; O2SAT 94
[2016-12-14] MEDS: busPIRone HCL 5 MG TAB PO SCH ×2 (08:24→12:55)
[2016-12-14] MEDS: amLODIPine BESYLATE 5 MG TAB PO SCH (08:24)
[2016-12-14] MEDS: OLANZapine 10 MG TAB PO SCH ×2 (08:24→21:00)
[2016-12-14] MEDS: MELOXICAM 7.5 MG TAB PO SCH (08:24)
[2016-12-14 18:00] VITALS: BP 134/73; PULSE 89; RESP 18; TEMP 97.8; O2SAT 96
[2016-12-14] MEDS: ACETAMINOPHEN 325 MG TAB PO PRN (18:11)
[2016-12-14] MEDS: diphenhydrAMINE HCL 50 MG CAP PO PRN (21:18)
[2016-12-14] MEDS: traZODone HCL 50 MG TAB PO SCH (21:19)
--- NOTE | 2016-12-14 21:57 | HHI.PYPN ---
Subjective Remarks Pt seen and discussed with staff. Pt reports that he has had poor sleep and attributes it to intiation of buspar. He reports seeing video games that he has played before "faintly". No SI/HI. Objective Alert: Yes [place]: Person (person), Place, Date (partial to date) Mood: Anxious, Depressed Affect: Restricted Memory Intact: Comment (not formally tetsed) Hallucinations: Other (none) Delusions: Yes Delusion Type: Paranoid Suicidal: Ideation (of jumping in traffic or jumping in the ocean while on a cruise) Homicidal: Ideation (negative) Insight/Judgement limited Vitals/IOs Vital Signs Date Time Temp Pulse Resp B/P Pulse Ox O2 Delivery O2 Flow Rate FiO2 12/14/16 18:00 97.8 89 18 134/73 96 Assessment & Plan Problem List: (1) Severe recurrent major depression with psychotic features ICD Code: F33.3 Assessment & Plan Will hold buspar tonight and see if sleep improves. Continue other medications. Estimated LOS: days Justification for Cont. Inpt. impairments in self care and reality construction. Madison Rhoades MD Dec 14, 2016 21:57
[2016-12-15 06:01] VITALS: BP 137/65; PULSE 88; RESP 18; TEMP 98; O2SAT 97
[2016-12-15] MEDS: amLODIPine BESYLATE 5 MG TAB PO SCH (08:30)
[2016-12-15] MEDS: MELOXICAM 7.5 MG TAB PO SCH (08:30)
[2016-12-15] MEDS: OLANZapine 10 MG TAB PO SCH ×2 (08:34→21:00)
--- NOTE | 2016-12-15 15:35 | HHI.PYPN ---
Subjective Remarks Patient discussed with treatment team chart review, seen on unit. Patient is complaining of some insomnia will increase Zyprexa to 5 mg a.m. 10 mg at bedtime. It appears the BuSpar was placed on all of the weekend because patient complained of the giving him more anxiety and arousable Review of Systems Except as stated in HPI: all other systems reviewed are Neg Objective Alert: Yes [place]: Person (person), Place, Date (partial to date) Mood: Anxious, Depressed Affect: Restricted Memory Intact: Comment (not formally tetsed) Hallucinations: Other (none) Delusions: Yes Delusion Type: Paranoid Suicidal: Ideation (of jumping in traffic or jumping in the ocean while on a cruise) Homicidal: Ideation (negative) Insight/Judgement Poor Vitals/IOs Vital Signs Date Time Temp Pulse Resp B/P Pulse Ox O2 Delivery O2 Flow Rate FiO2 12/15/16 06:01 98.0 88 18 137/65 97 Manual Cuff/Auscultation Assessment & Plan Problem List: (1) Severe recurrent major depression with psychotic features ICD Code: F33.3 Assessment & Plan Estimated LOS: days patient continues somewhat somatic now continues to complain of insomnia see medication adjustment above. There does denies suicidality at this time Justification for Cont. Inpt. At this time patient will decompensate the placed in the lower level of care Discharge Planning To be determined Keven Perez MD Dec 15, 2016 15:35
--- NOTE | 2016-12-15 16:49 | HHI.PR ---
Addendum to Inpatient Note Addendum Reason: Additional Documentation Additional Information Labs reviewed. Medications reviewed. VS normal now. Discussed with nursing patient's tachycardia possibly secondary to on and off anxiety. Anxiety needs to be controlled better. Continue to encourage by mouth fluid hydration. Will not start patient on any medications for now. Stable from Hospitalist standpoint. We will sign off. Reconsult as needed. ( Eduardo Perez) Eduardo Perez Dec 15, 2016 16:49 Ender Alegre DO Dec 16, 2016 00:15
[2016-12-15 19:53] VITALS: BP 160/83; PULSE 100; RESP 18; TEMP 97.8; O2SAT 96
[2016-12-15] MEDS: traZODone HCL 50 MG TAB PO SCH (21:00)
[2016-12-15] MEDS: diphenhydrAMINE HCL 50 MG CAP PO PRN (21:15)
[2016-12-16 06:47] VITALS: BP 126/64; PULSE 92; RESP 18; TEMP 98.2; O2SAT 96
[2016-12-16] MEDS: OLANZapine 10 MG TAB PO SCH ×3 (08:50→21:06)
[2016-12-16] MEDS: MELOXICAM 7.5 MG TAB PO SCH (08:50)
[2016-12-16] MEDS: amLODIPine BESYLATE 5 MG TAB PO SCH (08:52)
--- NOTE | 2016-12-16 12:53 | HHI.PYPN ---
Subjective Remarks Patient seen in [place] with nurse Janny and medical student Cindy, chart review, patient calm cooperative states she slept well last night states his anxiety is also diminishing. He denies suicidality homicidality voices or visions. Will have counselor contact patient's mother for meeting tomorrow morning possibility of discharge tomorrow Review of Systems Except as stated in HPI: all other systems reviewed are Neg Objective Alert: Yes [place]: Person (person), Place, Date (partial to date) Mood: Calm, Depressed (softening) Affect: Restricted (lessening) Memory Intact: Comment (not formally tetsed) Hallucinations: Other (none) Delusions: Yes Delusion Type: Paranoid (decrease) Suicidal: Ideation (denies) Homicidal: Ideation (denies) Insight/Judgement Poor to fair Vitals/IOs Vital Signs Date Time Temp Pulse Resp B/P Pulse Ox O2 Delivery O2 Flow Rate FiO2 12/16/16 06:47 98.2 92 18 126/64 96 Assessment & Plan Problem List: (1) Severe recurrent major depression with psychotic features ICD Code: F33.3 Assessment & Plan Estimated LOS: days patient Col[place], sleep is improved, anxiety is improved. We 'll attempt to meet with patient's mother tomorrow morning for probable discharge tomorrow Justification for Cont. Inpt. Arranging meeting with patient's mother for tomorrow with potential for discharge Discharge Planning To be determined Keven Perez MD Dec 16, 2016 12:53
[2016-12-16 19:03] VITALS: BP 109/57; PULSE 112; RESP 18; TEMP 98.5; O2SAT 95
[2016-12-16] MEDS: traZODone HCL 50 MG TAB PO SCH (21:06)
[2016-12-16] MEDS: diphenhydrAMINE HCL 50 MG CAP PO PRN (21:06)
[2016-12-17 06:27] VITALS: BP 141/72; PULSE 100; RESP 18; TEMP 100; O2SAT 96
[2016-12-17] MEDS: OLANZapine 10 MG TAB PO SCH (08:17)
[2016-12-17] MEDS: amLODIPine BESYLATE 5 MG TAB PO SCH (08:17)
[2016-12-17] MEDS: MELOXICAM 7.5 MG TAB PO SCH (08:17)
[2016-12-17] MEDS ORDERED: MELO7.5T4 PO (14:22)
[2016-12-17] MEDS ORDERED: OLAN5TAB PO (14:22)
[2016-12-17] MEDS ORDERED: NORV2.5T PO (14:22)
[2016-12-17] MEDS ORDERED: TRAZ100T4 PO (14:22)
--- NOTE | 2016-12-17 14:35 | HHI.DS ---
Psychiatry Discharge Summary Inpatient Psychiatric care?: Yes Advance Directive: No Reason Not Provided: Due to Patient Condition Mental Health AdvanceDirective: No Health Care Proxy: No Admission Admission Date Dec 05, 2016 at 09:38 Admission Diagnosis: (1) Severe recurrent major depression with psychotic features ICD Code: F33.3 Brief History ER note, by Ms. Desai, 12/06/2016 :"26-year-old man with history of bipolar Disorder 1 who is legally blind presents to emergency department for psychiatric evaluation as per the recommendation his outpatient psychiatrist, Dr. Adamson . As per documentation from Ed included in this report ; Has been increasingly depressed after manipulation of his medications. This is accompanied by severe anxiety. Patient has been experiencing suicidal thoughts , mostly in his dreams. This scares him. Denies any recent illness, fever, chills. Mom accompanies patient states that Dr. Huang contacted the hospital however I have been unable to find out whom he spoke with. Patient was seen and evaluated in ED on Nov, but at the time did not meet criteria for inpatient psychiatric hospitalization and mother preferred that he be treated as an outpatient Patient is in J pod. Patient is rocking back and forth and appears anxious. He is visually impaired. He is engaging and able to answer questions. he does not appear internally stimulated. He denies any hallucinatory process. Does report fast and intrusive thoughts. Having difficulty making decisions and excessive worry. He does state that he is having suicidal thoughts that he has never had before and cause him distress. Mood is anxious and depressed. Patient reports that he has not slept well in the past 4 to 4 days and that he is not eating well. Telephone call to mother. She reports that after he stopped the Zyprexa on Nov 18. The patient felt that he did not have a correct psychiatric diagnosis of bipolar disorder and against medical advise stopped taking the Zyprexa. After several weeks he began to experience symptoms including not sleeping, running around from room to room, complaining of not being able to control his thoughts, changes in his mood. She prefers that at this time he was hospitalized in order to stabilize medications and mood. As per EMR patient was last hospitalized [facility] in December of 2014 under the care of Dr. Whalen after he was placed under a BA for what appears to be manic symptoms" 12/06/2016: The patient is a 26-year-old man, domicile with his mother , with psychiatric history of bipolar disorder, anxiety, cerebral palsy, some level of intellectual disability, hospitalized here at [facility] in 2014, no previous suicidal attempts, psychiatric follow-up with Dr. German, medical history of legal blindness, who was admitted in the psychiatric weiss as per outpatient psychiatrist request due to suicidal ideation and depression in the context of recent changes in his psychotropics. On psychiatric evaluation today patient complains of acute anxiety, poor sleep, is very ambivalent, at the beginning he says that he wants to , minutes later he is a that he doesn' t want to "I cannot stop the intrusive thought about this". Patient says that he doesn't want to , he wants to get better, is motivated to take his medication, but he is afraid of losing his mind. At this moment the patient denies suicidal or homicidal ideation, denies visual and auditory hallucinations. As per nurses he has been pacing around, at time he has been been difficult to redirect and he has been complaining of anxiety. Patient reports auditory hallucinations of ringing sounds, but denies voices commanding type. At some point over the evaluation patient became very labile, started to cry and complain of anxiety, stating that "I cannot take this anymore". Patient is oriented 3, he was offered Ativan 2 mg and he accepted. Tobacco Use In Past 30 Days: No Tobacco Past 30 Days Alcohol Use: Never Hospital Course Patient's initial anger irritability vague paranoia slowly resolved as became compliant with medications and adjusting to the milieu. His somatization related to his sleep and anxiety has also softened. He is now sleeping 6+ hours per night that his anxiety is under better control. I did meet with patient today and then later did meet with patient's mother who both agree that she is ready to call mother is willing to pick him up today still with him in his apartment for a while. She is going now to get groceries for his apartment. We'll give him a month supply medication that I will transmit to the [facility] pharmacy on [facility]. With referral to [facility] for outpatient care. Mother pickup patient about 4:30 today. Patient continues to denies suicidality homicidality voices or visions Results Blood Pressure 141 / 72 Vital Signs Date Time Temp Pulse Resp B/P Pulse Ox O2 Delivery O2 Flow Rate FiO2 12/17/16 06:27 100.0 100 18 141/72 96 Urine tox screen on 12/02 with visit [id number] was negative Summary of Procedures None done Pending results at discharge: No Medications # of Antipsychotic meds at D/C: 1 Approp Antipsych med options 1 - Minimum of three failed multiple trials of monotherapy. 2 - Documented plan to taper to monotherapy due to previous use of multiple meds OR cross-taper in progress at D/C. 3 - Documentation of augmentation of Clozapine. 4 - Justification other than those listed in allowable values 1-3, document here : Discharge Discharge Date: Dec 17, 2016 Discharge Diagnosis: (1) Severe recurrent major depression with psychotic features Diagnosis: Principal ICD Code: F33.3 Mental Status Exam at Disch Alert white male with marked visual handicaps, otherwise normal active, mood is euthymic to somewhat restricted affect shows slight decreased range intensity. Speech rhythm is somewhat dysarthric there is mild tangentiality. There are no auditory or visual hallucinations no delusions noted insight and judgment poor to fair cognition grossly intact Pt Condition on Discharge: Stable Discharge Disposition: Discharge Home Discharge Instructions Diet Instructions: As Tolerated, No Restrictions Activities you can perform: Regular-No Restrictions Scheduled Appointment: Lauro Anderson Discharge Time > 30 minutes Discharge/Advance Care Plan Health Problems: (1) Severe recurrent major depression with psychotic features Goals to promote your health * To prevent worsening of your condition and complications * To maintain your health at the optimal level Directions to meet your goals Take your medications as prescribed Follow your dietary instruction Follow activity as directed Keep your appointments as scheduled Take your immunizations and boosters as scheduled If your symptoms worsen call your PCP, if no PCP go to Urgent Care Center or Emergency Room For 04/05 questions related to your inpatient stay or results of tests pending at discharge, please contact Dr. Keven Perez at Smoking is Dangerous to Your Health. Avoid second hand smoking Keven Perez MD Dec 17, 2016 14:34
== END 2016-12-17 16:00 | disposition home or self-care (01) | DRG 885 ==
LOC: NEPJ 11:22 → NEDA 12-05 09:38 → H260 12-05 13:23
PROVIDERS: ADMIT Psychiatry & Neurology Psychiatry; ATTEND Psychiatry & Neurology Psychiatry
DX: F33.3 Major depressive disorder, recurrent, severe with psychotic symptoms (principal); F79 Unspecified intellectual disabilities; H54.8 Legal blindness, as defined in USA; G80.9 Cerebral palsy, unspecified; R03.0 Elevated blood-pressure reading, without diagnosis of hypertension
CPT/HCPCS: 80048; 80053; 80061; 83036; 85025; 93005; 93306; 99284; Q0163

== ENCOUNTER 2016-12-26 02:26 | Emergency (ER) | payer MEDICARE, MEDICAID ==
[~2016-12-26] VITALS: Ht 170.2 cm; Wt 75.0 kg
[~2016-12-26 02:26] MED LIST changes: +MELO7.5T4 PO; -MOBI7.5T PO; +NORV2.5T PO; +OLAN5TAB PO; +TRAZ100T4 PO
[2016-12-26 02:40] VITALS: BP 148/79; PULSE 104; RESP 18; TEMP 98.7; O2SAT 96
--- NOTE | 2016-12-26 02:53 | PD ---
HPI Chief Complaint: Psychiatric Symptoms Time Seen by Provider: 02:51 Travel History International Travel<30 days: No Contact w/Intl Traveler<30days: No Traveled to known affect area: No History of Present Illness HPI Patient comes in under [place] act by police for suicidal ideations. Patient states he does have suicidal thoughts in his head because of the bad music in his head. Patient denies any homicidal ideations or other medical concerns. Patient is asking for iodine to help him sleep. Denies any chest pain, shortness of breath, headache, fevers, nausea, vomiting, or abdominal pain. PFSH Past Medical History Bipolar Disorder: Yes Anxiety: Yes Cancer: No Cardiovascular Problems: No Diabetes: No Endocrine: No Genitourinary: No Headaches: No Hepatitis: No Hiatal Hernia: No Hypertension: No Immune Disorder: No Musculoskeletal: Yes (cerebrel palsy) Psychiatric: Yes (anxiety, depression, bipolar disorder) Reproductive: No Respiratory: No Seizures: No Thyroid Disease: No Past Surgical History Cardiac Surgery: Yes Eye Surgery: Yes Pacemaker: No Other Surgery: Yes Social History Alcohol Use: No Tobacco Use: No Substance Use: No Allergies-Medications (Allergen,Severity, Reaction): Coded Allergies: Sulfa (Verified Allergy, Severe, Rash, 12/26/16) Reported Meds & Prescriptions Reported Meds & Active Scripts Active Trazodone (Trazodone HCl) 100 Mg Tab 100 Mg PO HS Olanzapine 5 Mg Tab 5 Mg PO 1 PO AM, 2 PO HS Meloxicam 7.5 Mg Tab 7.5 Mg PO DAILY Norvasc (Amlodipine Besylate) 2.5 Mg Tab 2.5 Mg PO DAILY Reported Benadryl Allergy (Diphenhydramine HCl) 25 Mg Tab 25 Mg PO Q6H PRN Aleve (Naproxen Sodium) 220 Mg Tab 1 Tab PO DAILY PRN Olanzapine 10 Mg Tab 1 Tab PO HS Review of Systems Except as stated in HPI: all other systems reviewed are Neg Physical Exam Narrative GENERAL: Well-developed, well nourished, in no acute distress, and non-ill appearing. SKIN: Warm and dry. HEAD: Atraumatic. Normocephalic. ENT: No nasal bleeding or discharge. Mucous membranes pink and moist. NECK: Trachea midline. Supple. No nuclear rigidity. CARDIOVASCULAR: Regular rate and rhythm. No murmur appreciated. RESPIRATORY: No accessory muscle use. No respiratory distress. Clear to auscultation. Breath sounds equal bilaterally. MUSCULOSKELETAL: No obvious deformities. No clubbing. No cyanosis. No edema. Full range of motion. NEUROLOGICAL: Awake and alert. No obvious cranial nerve deficits. Motor grossly within normal limits. Normal speech. PSYCHIATRIC: Appropriate mood and affect; insight and judgment normal. Data Data Last Documented VS Vital Signs Date Time Temp Pulse Resp B/P Pulse Ox O2 Delivery O2 Flow Rate FiO2 12/26/16 02:40 98.7 104 18 148/79 96 Orders Complete Blood Count With Diff (12/26/16 02:42) Comprehensive Metabolic Panel (12/26/16 02:42) Psych Screen (12/26/16 02:42) Drug Screen, Random Urine (12/26/16 02:42) Alcohol (Ethanol) (12/26/16 02:42) Salicylates (Aspirin) (12/26/16 02:42) Tylenol (Acetaminophen) (12/26/16 02:42) Olanzapine (Zyprexa) (12/26/16 03:45) Labs Laboratory Tests Test 12/26/16 02:45 White Blood Count 10.4 TH/MM3 Red Blood Count 5.84 MIL/MM3 Hemoglobin 17.3 GM/DL Hematocrit 50.8 % Mean Corpuscular Volume 86.9 FL Mean Corpuscular Hemoglobin 29.7 PG Mean Corpuscular Hemoglobin 34.1 % Concent Red Cell Distribution Width 13.7 % Platelet Count 202 TH/MM3 Mean Platelet Volume 8.5 FL Neutrophils (%) (Auto) 66.3 % Lymphocytes (%) (Auto) 26.0 % Monocytes (%) (Auto) 5.3 % Eosinophils (%) (Auto) 1.9 % Basophils (%) (Auto) 0.5 % Neutrophils # (Auto) 6.9 TH/MM3 Lymphocytes # (Auto) 2.7 TH/MM3 Monocytes # (Auto) 0.6 TH/MM3 Eosinophils # (Auto) 0.2 TH/MM3 Basophils # (Auto) 0.1 TH/MM3 CBC Comment DIFF FINAL Differential Comment Sodium Level 138 MEQ/L Potassium Level 3.6 MEQ/L Chloride Level 102 MEQ/L Carbon Dioxide Level 25.7 MEQ/L Anion Gap 10 MEQ/L Blood Urea Nitrogen 13 MG/DL Creatinine 0.89 MG/DL Estimat Glomerular Filtration 104 ML/MIN Rate Random Glucose 95 MG/DL Calcium Level 8.5 MG/DL Total Bilirubin 1.0 MG/DL Aspartate Amino Transf 18 U/L (AST/SGOT) Alanine Aminotransferase 60 U/L (ALT/SGPT) Alkaline Phosphatase 70 U/L Total Protein 7.5 GM/DL Albumin 4.1 GM/DL Salicylates Level LESS THAN 1.7 MG/DL Urine Opiates Screen NEG Acetaminophen Level LESS THAN 2.0 MCG/ML Urine Barbiturates Screen NEG Urine Amphetamines Screen NEG Urine Benzodiazepines Screen NEG Urine Cocaine Screen NEG Urine Cannabinoids Screen NEG Ethyl Alcohol Level 5 MG/DL MDM Medical Decision Making Medical Screen Exam Complete: Yes Emergency Medical Condition: Yes Differential Diagnosis Suicidal, homicidal, bipolar, anxiety, depression, other Narrative Course Patient was seen and examined. Labs were obtained and reviewed. Patient medically cleared for further treatment and evaluation by psych. Final disposition per psych. Diagnosis Primary Impression: Suicidal thoughts Condition: Stable Thomas Ramirez Dec 26, 2016 02:53
[2016-12-26 03:01] LABS: AUTOMATED NEUTROPHIL # 6.9 TH/MM3 (1.8-7.7); BASOPHIL # 0.1 TH/MM3 (0-0.2); BASOPHIL % 0.5 % (0.0-2.0); EOSINOPHIL # 0.2 TH/MM3 (0-0.4); EOSINOPHIL % 1.9 % (0.0-4.0); HEMATOCRIT 50.8 % (39.0-51.0); HEMO FLAGS DIFF FINAL; LYMPHOCYTE # 2.7 TH/MM3 (1.0-4.8); MEAN CELL VOLUME 86.9 FL (80.0-100.0); MEAN CORPUSCULAR HEMOGLOBIN 29.7 PG (27.0-34.0); MEAN CORPUSCULAR HGB CONC 34.1 % (32.0-36.0); MONO % 5.3 % (0.0-8.0); NEUT % 66.3 % (16.0-70.0); PLATELET COUNT 202 TH/MM3 (150-450); RED BLOOD COUNT 5.84 MIL/MM3 (4.50-5.90); RED CELL DISTRIBUTION WIDTH 13.7 % (11.6-17.2); WHITE BLOOD COUNT 10.4 TH/MM3 (4.0-11.0)
[2016-12-26 03:07] LABS: AMPHETAMINE, URINE NEG (NEG); BARBITURATES, URINE NEG (NEG); COCAINE, URINE NEG (NEG)
[2016-12-26 03:19] LABS: ALT (GPT) 60 U/L (12-78); ANION GAP 10 MEQ/L (5-15); AST (GOT) 18 U/L (15-37); BICARBONATE 25.7 MEQ/L (21.0-32.0); BLOOD UREA NITROGEN 13 MG/DL (7-18); CHLORIDE 102 MEQ/L (98-107); GLOMERULAR FILTRATION RATE 104 ML/MIN (>89); POTASSIUM 3.6 MEQ/L (3.5-5.1); SODIUM (NA) 138 MEQ/L (136-145)
[2016-12-26 03:21] LABS: ALKALINE PHOSPHATASE 70 U/L (45-117)
[2016-12-26 03:27] LABS: ACETAMINOPHEN LESS THAN 2.0 MCG/ML (10.0-30.0)
[2016-12-26] MEDS ORDERED: OLANZapine 10 MG TAB PO ONE (03:45)
[2016-12-26 06:29] VITALS: BP 122/95; PULSE 101; RESP 19; TEMP 97.6; O2SAT 97
--- NOTE | 2016-12-26 13:48 | PD ---
History of Present Illness Chief Complaint: Psychiatric Symptoms Time Seen by Provider: 13:30 Travel History International Travel<30 Days: No Contact w/Intl Traveler<30days: No Known affected area: No Legal Status Legal Status: [place] Act [place] Act Signed By: Paulina Norris History of Present Illness: History of Present Illness Patient is a 26 year old male with history of bipolar disorder who comes in under [place] act by police.The BA report states that the patient called the police and informed them that he was having suicidal thoughts and that he was going to . Patient was monitored in J pod and he did not present any behavioral concerns and no suicidality. He was able to sleep well. EMR is reviewed. He was [place] psychiat[place] [facility] [place] 17, 2016. He reports that he has been medication compliance. Patient is seen in J pod. Awake, alert. Partially oriented to time. He is visually impaired. When he sits up he rocks back and forth which is usual behavior for him. His speech is clear and he is able to answer all questions. He denies any hallucinations, no delusion and no paranoia. There is no suicidal or homicidal ideation. He states that he was feeling stressed yesterday and was having trouble sleeping and then began to have suicidal thoughts. Recent stressors are that he has decided to be more active, has joined a gym and wants to have some friends. He does admit that he has taken i extra Trazodone on days in which he is not able to sleep well. I spoke with his mother Lata at [phone] and she has no concerns if he were to be discharged and she will pick him up. [facility] Past Medical History Bipolar Disorder: Yes Anxiety: Yes Cancer: No Cardiovascular Problems: No Cerebral Palsy: Yes Diabetes: No Diminished Hearing: No Endocrine: No Genitourinary: No Headaches: No Hepatitis: No Hiatal Hernia: No Hypertension: No Immune Disorder: No Musculoskeletal: Yes (cerebrel palsy) Psychiatric: Yes (anxiety, depression, bipolar disorder) Reproductive: No Respiratory: No Seizures: No Thyroid Disease: No Past Surgical History Cardiac Surgery: Yes Eye Surgery: Yes Pacemaker: No Other Surgery: Yes Psychiatric History Psychiatric History Hx Psychiatric Treatment: Last psych hosp [place] 2016 [place] [facility] He sees Dr. Hubbard for medication management and a counselor in [place] named Iker May. History of Inpatient Treatment: Yes Guns or firearms in home: No Social History Single male. Lives alone. Never . Mother lives close to his apartment Hx Alcohol Use: No Hx Tobacco Use: No Hx Substance Use: No Substance Use Type: Alcohol Other Substances Used: ALCOHOL OCCASIONALLY Hx of Substance Use Treatment: No Family Psychiatric History Negative Allergies-Medications (Allergen,Severity, Reaction): Coded Allergies: Sulfa (Verified Allergy, Severe, Rash, 12/26/16) Reported Meds & Prescriptions Reported Meds & Active Scripts Active Trazodone (Trazodone HCl) 100 Mg Tab 100 Mg PO HS Olanzapine 5 Mg Tab 5 Mg PO 1 PO AM, 2 PO HS Meloxicam 7.5 Mg Tab 7.5 Mg PO DAILY Norvasc (Amlodipine Besylate) 2.5 Mg Tab 2.5 Mg PO DAILY Reported Olanzapine 10 Mg Tab 1 Tab PO HS Review of Systems Constitutional: COMPLAINS OF: Change in appetite Endocrine: DENIES: Heat/cold intolerance, Polydipsia, Polyuria, Polyphagia Eyes: COMPLAINS OF: Vision loss Ears, nose, mouth, throat: DENIES: Tinnitus, Hearing loss, Vertigo, Nasal discharge, Oral lesions, Throat pain, Hoarseness, Ear Pain, Running Nose, Epistaxis, Sinus Pain, Toothache, Odynophagia Respiratory: DENIES: Apneas, Cough, Snoring, Wheezing, Hemoptysis, Sputum production, Shortness of breath Cardiovascular: DENIES: Chest pain, Palpitations, Syncope, Dyspnea on Exertion , PND, Lower Extremity Edema, Orthopnea, Claudication Genitourinary: DENIES: Sexual dysfunction, Urinary frequency, Urinary incontinence, Urgency, Hematuria, Dysuria, Nocturia, Penile Discharge, Testicular Pain, Testicular Swelling Musculoskeletal: COMPLAINS OF: Muscle aches Integumentary: DENIES: Abnormal pigmentation, Nail changes, Pruritus, Rash Hematologic/lymphatic: DENIES: Bruising, Lymphadenopathy Immunologic/allergic: DENIES: Eczema, Urticaria Neurologic: COMPLAINS OF: Abnormal gait Psychiatric: COMPLAINS OF: Anxiety, Depression Exam Alert: Yes [place]: Person (ox4) Mood: Calm Affect: Euthymic Speech: Clear, Logical Eye Contact: Other (visually impaired) Memory Intact: Comment (no impairmetn) Delusions: No Suicidal: Ideation (deneis any ) Homicidal: Ideation (denies any) Insight/Judgement Fair. Not impaired. [facility] Medical Decision Making Medical Record Reviewed: Yes Assessment/Plan The patient was provided support. He slept well. He denies any suicidal ideation. No psychosis. He is requesting discharge at this time and does not meet involuntary criteria. He has family support. Lift BA. Discharge to home. [facility] with [facility]. Orders Complete Blood Count With Diff (12/26/16 02:42) Comprehensive Metabolic Panel (12/26/16 02:42) Psych Screen (12/26/16 02:42) Drug Screen, Random Urine (12/26/16 02:42) Alcohol (Ethanol) (12/26/16 02:42) Salicylates (Aspirin) (12/26/16 02:42) Tylenol (Acetaminophen) (12/26/16 02:42) Olanzapine (Zyprexa) (12/26/16 03:45) Diet Regular Basic (12/26/16 Breakfast) Diet Regular Basic (12/26/16 Lunch) Results Vital Signs Date Time Temp Pulse Resp B/P Pulse Ox O2 Delivery O2 Flow Rate FiO2 12/26/16 06:29 97.6 101 19 122/95 97 Room Air 12/26/16 02:40 98.7 104 18 148/79 96 Laboratory Tests Test 12/26/16 02:45 White Blood Count 10.4 Red Blood Count 5.84 Hemoglobin 17.3 Hematocrit 50.8 Mean Corpuscular Volume 86.9 Mean Corpuscular Hemoglobin 29.7 Mean Corpuscular Hemoglobin 34.1 Concent Red Cell Distribution Width 13.7 Platelet Count 202 Mean Platelet Volume 8.5 Neutrophils (%) (Auto) 66.3 Lymphocytes (%) (Auto) 26.0 Monocytes (%) (Auto) 5.3 Eosinophils (%) (Auto) 1.9 Basophils (%) (Auto) 0.5 Neutrophils # (Auto) 6.9 Lymphocytes # (Auto) 2.7 Monocytes # (Auto) 0.6 Eosinophils # (Auto) 0.2 Basophils # (Auto) 0.1 CBC Comment DIFF FINAL Differential Comment Sodium Level 138 Potassium Level 3.6 Chloride Level 102 Carbon Dioxide Level 25.7 Anion Gap 10 Blood Urea Nitrogen 13 Creatinine 0.89 Estimat Glomerular Filtration 104 Rate Random Glucose 95 Calcium Level 8.5 Total Bilirubin 1.0 Aspartate Amino Transf 18 (AST/SGOT) Alanine Aminotransferase 60 (ALT/SGPT) Alkaline Phosphatase 70 Total Protein 7.5 Albumin 4.1 Salicylates Level LESS THAN 1.7 Urine Opiates Screen NEG Acetaminophen Level LESS THAN 2.0 Urine Barbiturates Screen NEG Urine Amphetamines Screen NEG Urine Benzodiazepines Screen NEG Urine Cocaine Screen NEG Urine Cannabinoids Screen NEG Ethyl Alcohol Level 5 Diagnosis Primary Impression: Bipolar disorder Ruled Out: Suicidal thoughts Psychiatrically Cleared: Yes Med/ Other Pt Specific Info: No Change to Meds Disposition: 01 DISCHARGE HOME Condition: Stable Problem Qualifiers Primary Impression: Bipolar disorder Qualified Code: F31.31 - Bipolar affective disorder, currently depressed, mild Katherin Desai Dec 26, 2016 13:48
== END 2016-12-26 15:03 | disposition home or self-care (01) ==
LOC: NEPJ 02:26
DX: R45.851 Suicidal ideations (principal); F31.31 Bipolar disorder, current episode depressed, mild; Z86.59 Personal history of other mental and behavioral disorders; Z87.39 Personal history of other diseases of the musculoskeletal system and connective tissue
CPT/HCPCS: 80053; 80307; 85025; 99284